=== PATIENT | male | born 1965 | race American Indian/Alaskan Native ===

== ENCOUNTER 2017-08-22 21:01 | Emergency (ER) | payer MEDICAID ==
[2017-08-22 21:01] VITALS: BMI 22.9
--- NOTE | 2017-08-22 23:46 | C.PDOC ---
History Of Present Illness 52yo male, presents to ED stating he has a "bad left leg" and that his leg was weak earlier today, "gave out" and he fell resulting in a head injury around 1630 today. Patient denies any associated loss of consciousness. Patient admits to drinking all day today and states he went to [employer] food for tonight, had an episode of chest pain and called the ambulance. Patient's current story is contrary to what he said to triage nurse. Time Seen by Provider: 08/22/17 23:23 Chief Complaint (Nursing): Substance Abuse History Per: Patient History/Exam Limitations: intoxication Current Symptoms Are (Timing): Still Present Modifying Factor(s): Alcohol Past Medical History Reviewed: Historical Data, Nursing Documentation, Vital Signs Vital Signs: Last Vital Signs Temp 98.2 F 08/22/17 22:43 Pulse 81 08/22/17 22:43 Resp 18 08/22/17 22:43 BP 122/82 08/22/17 22:43 Pulse Ox 99 08/22/17 23:49 - Medical History PMH: Asthma, Depression, Diabetes, Gastritis, Gastrointestinal Ulcer, HTN, Pneumonia, Seizures Surgical History: Endoscopy - [facility] Procedures ALCOHOL DETOXIFICATION (06/06/14) DETOXIFICATION SERVICES FOR SUBSTANCE ABUSE TREATMENT (03/30/16) ESOPHAGOGASTRODUODENOSCOPY [EGD] W/CLOSED BIOPSY (07/31/13) INDIV PSYCHOTHERAPY FOR SUBSTANCE ABUSE TREATMENT, SUPPORT (03/30/16) INFLUENZA VACCINATION (07/31/13) INJECT/INFUSE ELECTROLYT (07/07/14) INJECT/INFUSE NEC (07/07/14) INTRODUCTION OF SERUM/TOX/VACCINE INTO MUSCLE, PERC APPROACH (02/12/17) TETANUS TOXOID ADMINIST (08/06/14) VACCINATION NEC (07/31/13) Family History: States: Unknown Family Hx - Social History Hx Tobacco Use: No Hx Alcohol Use: Yes Hx Substance Use: No (denies) - Immunization History Hx Tetanus Toxoid Vaccination: No Hx Influenza Vaccination: Yes Hx Pneumococcal Vaccination: No Review Of Systems Constitutional: Negative for: Fever, Chills, Sweats Eyes: Negative for: Vision Change Cardiovascular: Positive for: Chest Pain. Negative for: Palpitations, Orthopnea Respiratory: Negative for: Cough, Shortness of Breath, SOB with Excertion Gastrointestinal: Negative for: Nausea, Vomiting, Abdominal Pain Musculoskeletal: Positive for: Leg Pain Neurological: Positive for: Other (head injury due to fall). Negative for: Weakness (left knee) Physical Exam - Physical Exam Appears: No Acute Distress Skin: Warm, Dry Head: Atraumatic, Normacephalic Eye(s): bilateral: Normal Inspection Oral Mucosa: Other (alcohol on breath) Neck: Supple Chest: Symmetrical Cardiovascular: Rhythm Regular Respiratory: Normal Breath Sounds Back: Normal Inspection Extremity: Normal ROM Neurological/Psych: Oriented x3, No Normal Speech (slurred speech due to intoxication) Gait: Unsteady ED Course And Treatment - Laboratory Results Result Diagrams: 08/23/17 00:11 ECG: Interpreted By Me ECG Rhythm: Sinus Rhythm (with old septal infarct), Sinus Tachycardia O2 Sat by Pulse Oximetry: 99 (RA) Pulse Ox Interpretation: Normal Medical Decision Making Medical Decision Making: Impression: Alcohol intoxication, musculoskeletal pain Plan: -- CT Head w/o contrast -- Labs Disposition - Disposition Referrals: Non [facility] Provider, [Primary Care Provider] - Disposition Time: 00:43 Condition: STABLE - Clinical Impression Clinical Impression: Closed head injury, Alcohol intoxication, Chest pain - Scribe Statement The provider has reviewed the documentation as recorded by the Scribe (Sindy Rollins) Provider Attestation: All medical record entries made by the Scribe were at my direction and personally dictated by me. I have reviewed the chart and agree that the record accurately reflects my personal performance of the history, physical exam, medical decision making, and the department course for this patient. I have also personally directed, reviewed, and agree with the discharge instructions and disposition. Physician Patient Turnover Patient Signed Over To: Marco Antonio Cárdenas Handoff Comments: pending labs and CT Head
[2017-08-23 00:22] LABS: BASO # 0.1 K/uL (0.0-0.2); BASO % 1.2 % (0.0-2.0); EOS # 0.1 K/uL (0.0-0.7); EOS % 2.8 % (0.0-4.0); HEMOGLOBIN 13.2 g/dL (12.0-18.0); LYMPH % 47.8 % (20.0-40.0); MEAN CELL VOLUME 95.5 fL (80.0-94.0); MEAN CORPUSCULAR HEMOGLOBIN 33.2 pg (27.0-31.0); MEAN CORPUSCULAR HGB CONC 34.8 g/dL (33.0-37.0); MEAN PLATELET VOLUME 6.9 fL (7.2-11.7); MONO # 0.2 K/uL (0.0-0.8); MONO % 4.6 % (0.0-10.0); NEUT # 1.8 K/uL (1.8-7.0); NEUT % 43.6 % (50.0-75.0); NRBC % 0.1 % (0.0-2.0); RBC 3.97 Mil/uL (4.40-5.90); RED CELL DISTRIBUTION WIDTH 13.5 % (11.5-14.5); WHITE BLOOD COUNT 4.1 K/uL (4.8-10.8)
[2017-08-23 00:50] LABS: ALB/GLOB RATIO 1.1 (1.0-2.1); ALBUMIN 4.5 g/dL (3.5-5.0); ALT/SGPT 46 U/L (21-72); AST/SGOT 84 U/L (17-59); BLOOD UREA NITROGEN 5 mg/dL (9-20); CALCIUM 8.6 mg/dl (8.6-10.4); GFR AFRICAN-AMERICAN > 60; GFR NON-AFRICAN AMERICAN > 60
--- NOTE | 2017-08-23 01:33 | CT ---
EXAM: CT Head Without Intravenous Contrast CLINICAL HISTORY: 52 years old, male; Pain; Headache; Patient HX: 05-10-16; Additional info: Head injury TECHNIQUE: Axial computed tomography images of the head/brain without intravenous contrast. All CT scans at this facility use one or more dose reduction techniques, viz.: automated exposure control; ma/kV adjustment per patient size (including targeted exams where dose is matched to indication; i.e. head); or iterative reconstruction technique. COMPARISON: CT - HEAD W/O CONTRAST 2015-08-11 01:26 FINDINGS: Brain: Mild atrophy. No intracranial hemorrhage. No mass. Few scattered foci of decreased attenuation within periventricular/subcortical white matter. No edema. Ventricles: No hydrocephalus. Bones/joints: No acute fracture. Chronic deformities of facial bones. Soft tissues: Multifocal scalp swelling. Tiny radiopaque densities along frontal scalp, stable. Sinuses: Air-fluid level within LEFT maxillary sinus. Mastoid air cells: No mastoid effusion. Orbits: Unremarkable as visualized. IMPRESSION: 1. No intracranial hemorrhage. 2. Nonspecific white matter changes. 3. Incidental/non-acute findings are described above.
[2017-08-23 05:56] VITALS: BP 124/69; PULSE 69; RESP 20; TEMP 97.2; O2SAT 98
--- NOTE | 2017-08-23 21:01 | CARD ---
APPROVED REPORT EKG Measurement Heart [id number] <Conclusion> Sinus tachycardia Left axis deviation Septal infarct, age undetermined Abnormal ECG
== END 2017-08-23 05:56 | disposition home or self-care (01) ==
LOC: SUPCPDRO 21:01 → C.ER 21:01
DX: S09.90XA Unspecified injury of head, initial encounter (principal); X58.XXXA Exposure to other specified factors, initial encounter; F10.129 Alcohol abuse with intoxication, unspecified; E11.9 Type 2 diabetes mellitus without complications; I10 Essential (primary) hypertension

== ENCOUNTER 2017-10-01 01:40 | Emergency (ER) | payer MEDICAID ==
[2017-10-01 01:40] VITALS: BMI 22.9
--- NOTE | 2017-10-01 02:32 | C.PDOC ---
History Of Present Illness 52yo male, presents to ED with complaints of left hip pain which is chronic. He reports a fall a couple days ago but denies any falls or injuries today. Patient also admits to drinking alcohol today. He offers no other medical complaints. Time Seen by Provider: 10/01/17 01:48 Chief Complaint (Nursing): Substance Abuse History Per: Patient Onset/Duration Of Symptoms: Persistent Current Symptoms Are (Timing): Still Present - Hip Description Of Injury: Fell Past Medical History Reviewed: Historical Data, Nursing Documentation, Vital Signs Vital Signs: Last Vital Signs Temp 98 F 10/01/17 01:50 Pulse 82 10/01/17 01:50 Resp 18 10/01/17 01:50 BP 133/64 10/01/17 01:50 Pulse Ox 97 10/01/17 04:47 - Medical History PMH: Asthma, Depression, Diabetes, Gastritis, Gastrointestinal Ulcer, HTN, Pneumonia, Seizures Surgical History: Endoscopy Denies: Appendectomy - [facility] Procedures ALCOHOL DETOXIFICATION (06/06/14) DETOXIFICATION SERVICES FOR SUBSTANCE ABUSE TREATMENT (03/30/16) ESOPHAGOGASTRODUODENOSCOPY [EGD] W/CLOSED BIOPSY (07/31/13) INDIV PSYCHOTHERAPY FOR SUBSTANCE ABUSE TREATMENT, SUPPORT (03/30/16) INFLUENZA VACCINATION (07/31/13) INJECT/INFUSE ELECTROLYT (07/07/14) INJECT/INFUSE NEC (07/07/14) INTRODUCTION OF SERUM/TOX/VACCINE INTO MUSCLE, PERC APPROACH (02/12/17) TETANUS TOXOID ADMINIST (08/06/14) VACCINATION NEC (07/31/13) Family History: States: Unknown Family Hx - Social History Hx Tobacco Use: No Hx Alcohol Use: Yes Hx Substance Use: No (denies) - Immunization History Hx Tetanus Toxoid Vaccination: No Hx Influenza Vaccination: Yes Hx Pneumococcal Vaccination: No Review Of Systems Except As Marked, All Systems Reviewed And Found Negative. Musculoskeletal: Positive for: Other (left hip pain) Neurological: Negative for: Weakness, Numbness Physical Exam - Physical Exam Appears: No Acute Distress, Unkempt Skin: Normal Color Head: Atraumatic, Normacephalic Eye(s): bilateral: Normal Inspection Oral Mucosa: Moist, Other (alcohol on breath) Neck: Normal ROM Chest: Symmetrical Cardiovascular: Rhythm Regular Respiratory: Normal Breath Sounds Extremity: Normal ROM, No Deformity, No Swelling, Other (no signs of trauma noted) Neurological/Psych: Oriented x3 Gait: With Assistance (uses cane) ED Course And Treatment O2 Sat by Pulse Oximetry: 97 (RA) Pulse Ox Interpretation: Normal Medical Decision Making Medical Decision Making: Impression: Chronic left hip pain Plan: -- Prior records reviewed, patient was evaluated at [facility] 2 nights in a row, had xrays which showed no fractures or dislocations to hip or femur -- Patient to be observed in ER pending sobriety Disposition - Disposition Referrals: Alcoholics Anonymous [Outside] [facility] [Outside] [facility] [Outside] Disposition: HOME/ ROUTINE Disposition Time: 04:46 Condition: STABLE Instructions: Hip Pain (DC), Effects of Alcohol on Your Health Forms: [facility] (Kyrgyz) - POA Present On Arrival: None - Clinical Impression Clinical Impression: Alcohol abuse with intoxication, Hip pain, left - PA / CONCRETE MASON / Resident Statement MD/DO has reviewed & agrees with the documentation as recorded. - Scribe Statement The provider has reviewed the documentation as recorded by the Scribe (Sindy Rollins) Provider Attestation: All medical record entries made by the Scribe were at my direction and personally dictated by me. I have reviewed the chart and agree that the record accurately reflects my personal performance of the history, physical exam, medical decision making, and the department course for this patient. I have also personally directed, reviewed, and agree with the discharge instructions and disposition.
[2017-10-01 05:02] VITALS: BP 123/79; PULSE 72; RESP 20; TEMP 97.8
[2017-10-01 05:24] VITALS: O2SAT 97
== END 2017-10-01 05:08 | disposition home or self-care (01) ==
LOC: C.ER 01:40
DX: M25.552 Pain in left hip (principal); F10.129 Alcohol abuse with intoxication, unspecified; I10 Essential (primary) hypertension; E11.9 Type 2 diabetes mellitus without complications

== ENCOUNTER 2017-10-03 01:52 | Emergency (ER) | payer MEDICAID ==
[2017-10-03 01:53] VITALS: BMI 22.9
[2017-10-03 03:42] LABS: BASO % 1.2 % (0.0-2.0); EOS % 0.6 % (0.0-4.0); HEMOGLOBIN 11.1 g/dL (12.0-18.0); LYMPH # 1.2 K/uL (1.0-4.3); LYMPH % 38.3 % (20.0-40.0); MEAN CELL VOLUME 97.9 fL (80.0-94.0); MEAN CORPUSCULAR HGB CONC 34.7 g/dL (33.0-37.0); MEAN PLATELET VOLUME 7.4 fL (7.2-11.7); MONO # 0.3 K/uL (0.0-0.8); MONO % 8.3 % (0.0-10.0); NEUT # 1.6 K/uL (1.8-7.0); NEUT % 51.6 % (50.0-75.0); NRBC % 0.2 % (0.0-2.0); RBC 3.28 Mil/uL (4.40-5.90); RED CELL DISTRIBUTION WIDTH 16.5 % (11.5-14.5); WHITE BLOOD COUNT 3.1 K/uL (4.8-10.8)
--- NOTE | 2017-10-03 03:47 | C.PDOC ---
History Of Present Illness 52 y/o male presents to the Emergency Department via EMS for evaluation of chest pain and left hip pain. Patient is intoxicated with + alcohol on breath. States he fell, striking his left chest and hip. Denies any weakness, numbness, tingling, shortness of breath, or dizziness. Patient did not hit head during fall. Time Seen by Provider: 10/03/17 02:44 Chief Complaint (Nursing): Chest Pain History Per: Patient History/Exam Limitations: intoxication Onset/Duration Of Symptoms: Hrs Current Symptoms Are (Timing): Still Present Additional History Per: EMS Past Medical History Reviewed: Historical Data, Nursing Documentation, Vital Signs Vital Signs: Last Vital Signs Temp 97.7 F 10/03/17 06:01 Pulse 75 10/03/17 06:01 Resp 16 10/03/17 06:01 BP 108/68 10/03/17 06:01 Pulse Ox 99 10/03/17 07:16 - Medical History PMH: Asthma, Depression, Diabetes, Gastritis, Gastrointestinal Ulcer, HTN, Pneumonia, Seizures Surgical History: Endoscopy Denies: Appendectomy - [facility] Procedures ALCOHOL DETOXIFICATION (06/06/14) DETOXIFICATION SERVICES FOR SUBSTANCE ABUSE TREATMENT (03/30/16) ESOPHAGOGASTRODUODENOSCOPY [EGD] W/CLOSED BIOPSY (07/31/13) INDIV PSYCHOTHERAPY FOR SUBSTANCE ABUSE TREATMENT, SUPPORT (03/30/16) INFLUENZA VACCINATION (07/31/13) INJECT/INFUSE ELECTROLYT (07/07/14) INJECT/INFUSE NEC (07/07/14) INTRODUCTION OF SERUM/TOX/VACCINE INTO MUSCLE, PERC APPROACH (02/12/17) TETANUS TOXOID ADMINIST (08/06/14) VACCINATION NEC (07/31/13) Family History: States: Unknown Family Hx - Social History Hx Tobacco Use: No Hx Alcohol Use: Yes Hx Substance Use: No (denies) - Immunization History Hx Tetanus Toxoid Vaccination: No Hx Influenza Vaccination: Yes Hx Pneumococcal Vaccination: No Review Of Systems Except As Marked, All Systems Reviewed And Found Negative. Constitutional: Negative for: Fever, Chills Eyes: Negative for: Pain ENT: Negative for: Ear Pain, Ear Discharge Cardiovascular: Positive for: Chest Pain. Negative for: Palpitations, Orthopnea , Paroxysmal Noc. Dyspnea Respiratory: Negative for: Cough, Shortness of Breath, Hemoptysis, SOB with Excertion, Pleuritic Pain Gastrointestinal: Negative for: Nausea, Vomiting, Constipation Genitourinary: Negative for: Dysuria, Hematuria Musculoskeletal: Positive for: Other (hip pain). Negative for: Neck Pain Skin: Negative for: Rash, Lesions Neurological: Negative for: Weakness, Numbness (and tingling), Headache, Dizziness Psych: Negative for: Anxiety, Depression Physical Exam - Physical Exam Appears: Non-toxic, No Acute Distress Skin: Normal Color, Warm, Dry Head: Atraumatic, Normacephalic Eye(s): bilateral: Normal Inspection, PERRL, EOMI Nose: Normal Neck: Normal ROM, Supple Chest: Symmetrical, No Tenderness Cardiovascular: Rhythm Regular, No Murmur Respiratory: Normal Breath Sounds, No Accessory Muscle Use Gastrointestinal/Abdominal: Soft, No Tenderness, No Distention Extremity: Normal ROM, Tenderness (with extension and flexion of the left hip), No Deformity Neurological/Psych: Oriented x3, Normal Speech, Normal Motor, Normal Sensation ED Course And Treatment - Laboratory Results Result Diagrams: 10/03/17 03:36 10/03/17 06:19 ECG: Interpreted By Me, Viewed By Me Interpretation Of ECG: J point elevation in lead 1 and avL. Vent rate: 83 bpm. ND interval: 154 ms. QRS duration: 92 ms. QT/QTc: 388/455 ms. P-R-T axes: 65 -27 20 O2 Sat by Pulse Oximetry: 99 (RA) Pulse Ox Interpretation: Normal Medical Decision Making Medical Decision Making: Time: 02:50 Initial Plan: * EKG * Urine drug screen * Alcohol serum * Acetaminophen * Salicylate * Troponin I * Pro-BNP * CMP * CBC * PTT * Prothrombin time * X-ray left knee * X-ray left femur * X-ray pelvis * Chest x-ray Labs reviewed: Sodium is 122, Chloride 88. Alcohol is 228. IVF hydration ordered. 6:[address] Pelvis w/o contrast Disposition Counseled Patient/Family Regarding: Diagnosis - Disposition Disposition: HOME/ ROUTINE Disposition Time: 07:17 Condition: GOOD Forms: [facility] (Estonian) - Clinical Impression Clinical Impression: Chest pain, Hip pain, left - Scribe Statement The provider has reviewed the documentation as recorded by the Rima Roe Provider Attestation: All medical record entries made by the Rima were at my direction and personally dictated by me. I have reviewed the chart and agree that the record accurately reflects my personal performance of the history, physical exam, medical decision making, and the department course for this patient. I have also personally directed, reviewed, and agree with the discharge instructions and disposition.
[2017-10-03 03:48] LABS: INR 0.9; PROTHROMBIN TIME 10.4 SECONDS (9.7-12.2)
[2017-10-03 03:54] LABS: ACETAMINOPHEN < 10.0 ug/mL (10.0-30.0); SALICYLATE < 1.0 mg/dL 1
[2017-10-03 03:56] LABS: ALB/GLOB RATIO 1.2 (1.0-2.1); ALT/SGPT 191 U/L (21-72); AST/SGOT 225 U/L (17-59); BLOOD UREA NITROGEN 8 mg/dL (9-20); CALCIUM 8.6 mg/dl (8.6-10.4); GFR AFRICAN-AMERICAN > 60; GFR NON-AFRICAN AMERICAN > 60
[2017-10-03 04:05] LABS: B-TYPE NATRIURETIC PEPTIDE 61.4 pg/mL (0-900)
[2017-10-03] MEDS ORDERED: Sodium Chloride 0.9% 1,000 ML IV ONE (05:55)
[2017-10-03 06:36] LABS: ALB/GLOB RATIO 1.3 (1.0-2.1); ALT/SGPT 193 U/L (21-72); AST/SGOT 235 U/L (17-59); BLOOD UREA NITROGEN 8 mg/dL (9-20); CALCIUM 8.6 mg/dl (8.6-10.4); GFR AFRICAN-AMERICAN > 60; GFR NON-AFRICAN AMERICAN > 60
[2017-10-03 07:05] LABS: BARBITURATES, UR NEGATIVE (NEGATIVE); BENZODIAZEPINES, UR NEGATIVE (NEGATIVE); OPIATES, UR NEGATIVE (NEGATIVE); PHENCYCLIDINE, UR NEGATIVE (NEGATIVE)
[2017-10-03 08:09] VITALS: O2SAT 98
--- NOTE | 2017-10-03 08:28 | RAD ---
PROCEDURE: CHEST RADIOGRAPH, 1 VIEW HISTORY: Chest pain COMPARISON: 03/28/2016. FINDINGS: LUNGS: The lungs are well inflated and clear. PLEURA: No pneumothorax or pleural fluid seen. CARDIOVASCULAR: Normal. OSSEOUS STRUCTURES: No significant abnormalities. VISUALIZED UPPER ABDOMEN: Normal. OTHER FINDINGS: None. IMPRESSION: No active pulmonary disease.
--- NOTE | 2017-10-03 08:42 | RAD ---
PROCEDURE: Radiographs of the pelvis. HISTORY: trauma COMPARISON: None. FINDINGS: BONES: The pelvic ring is intact. There is no acute displaced fracture or bone destruction. Status post open reduction and internal fixation of proximal right femoral fracture. JOINTS: There is severe degenerative osteoarthrosis in the left hip joint with loss of joint space, subarticular cystic changes and lateral displacement of the femoral head. There is moderate degenerative osteoarthrosis in the right hip joint. OTHER FINDINGS: None. IMPRESSION: No acute fracture or dislocation.
--- NOTE | 2017-10-03 08:47 | RAD ---
PROCEDURE: Left Knee Radiographs. HISTORY: Pain. COMPARISON: None. FINDINGS: BONES: There is no acute displaced fracture or bone destruction. Bone alignment is normal. There is periarticular bone demineralization. Status post open reduction and internal fixation of tibial fracture. JOINTS: There is mild tricompartmental degenerative osteoarthrosis with reduced joint spaces and marginal spurring, worse in the medial compartment. JOINT EFFUSION: None. OTHER FINDINGS: None. IMPRESSION: No acute displaced fracture or dislocation.
--- NOTE | 2017-10-03 08:49 | RAD ---
PROCEDURE: Left Femur Radiographs. HISTORY: Trauma COMPARISON: None. TECHNIQUE: AP and Lateral Radiographs of the left femur. FINDINGS: FEMUR: Bone alignment and mineralization are normal. There is no acute fracture or bone destruction. SOFT TISSUES: Normal. OTHER FINDINGS: None. IMPRESSION: No acute fracture.
--- NOTE | 2017-10-03 09:34 | CT ---
PROCEDURE: CT scan of the pelvis was performed without administration of intravenous contrast INDICATION: COMPARISON: Plain radiographs performed earlier the same day. TECHNIQUE:: Multiple axial images were obtained with slice thickness of 2.5 mm. Coronal and sagittal reformatted images were obtained. Iterative reconstruction was used. This CT exam was performed using one or more of the following dose reduction techniques: Automated exposure control, adjustment of the mA and/or kV according to patient size, and/or use of iterative reconstruction technique. Total exam DLP = 430.27 mGy-cm. FINDINGS: There is no acute displaced fracture or bone destruction. Bone alignment is normal. There is mild diffuse bone demineralization. Status post open reduction and internal fixation of right proximal femoral fracture. There is no evidence for hardware complications. There is severe degenerative osteoarthrosis in the left hip joint with near complete loss of joint space, subarticular cystic changes and sclerosis are lateral displacement of the femoral head. There is moderate degenerative osteoarthrosis in the right hip joint. Both sacroiliac joints are normal. The periarticular soft tissues are normal. IMPRESSION: 1. No acute displaced fracture or dislocation. 2. Status post open reduction and internal fixation of right proximal femoral fracture, no evidence for hardware complications. 3. Severe degenerative osteoarthrosis in the left hip joint with lateral displacement of the femoral head. 4. Moderate degenerative osteoarthrosis in the right hip joint.
[2017-10-03] MEDS ORDERED: Potassium Chloride 20 mEq ER Tab PO STA (10:11)
[2017-10-03] MEDS ORDERED: Potassium Chloride 20 mEq ER Tab PO ONE (10:15)
[2017-10-03 10:26] VITALS: BP 127/85; PULSE 78; RESP 16; TEMP 98.8
--- NOTE | 2017-10-04 23:31 | CARD ---
APPROVED REPORT EKG Measurement Heart [id number] <Conclusion> Normal sinus rhythm Septal infarct, age undetermined Abnormal ECG
== END 2017-10-03 11:00 | disposition home or self-care (01) ==
LOC: C.ER 01:52
DX: R07.9 Chest pain, unspecified (principal); M25.552 Pain in left hip; E11.9 Type 2 diabetes mellitus without complications; I10 Essential (primary) hypertension
CPT/HCPCS: 71045; 72170; 72192; 73552; 73562; 80053; 80320; 80324; 80329; 80345; 80346; 80349; 80353; 80358; 80361; 83880; 83992; 84484; 85025; 85610; 85730; 93005; 96360; 99285; J7040

== ENCOUNTER 2017-10-03 18:22 | Emergency (ER) | payer MEDICAID ==
[2017-10-03 18:22] VITALS: BMI 22.9
[2017-10-03 18:38] VITALS: O2SAT 98
--- NOTE | 2017-10-03 18:58 | C.PDOC ---
History Of Present Illness Patient is a 52 y/o male, with a Hx of HTN and alcoholism, who presents to the ED with complaints of left chest wall pain, left hip pain, and left-sided head pain s/p falling down 9 steps. Patient was discharged from ED earlier today. Per brother, patient was found unconscious by neighbors; unknown if caused by alcohol consumption or head injury. Patient states last drink was last night, but family reports he was drinking today. Patient is awake and alert in the ED. No other physical complaints at this time. - HPI Time Seen by Provider: 10/03/17 18:39 Chief Complaint (Nursing): Trauma History Per: Patient History/Exam Limitations: no limitations Onset/Duration Of Symptoms: Hrs Injury Occurred (Timing): Hours Ago: Location Of Injury: Left: Chest, Head, Hip Recent travel outside of the [place]: No Past Medical History Reviewed: Historical Data, Nursing Documentation, Vital Signs Vital Signs: Last Vital Signs Temp 97.5 F L 10/03/17 18:31 Pulse 83 10/03/17 18:31 Resp 17 10/03/17 18:31 BP 110/74 10/03/17 18:31 Pulse Ox 98 10/03/17 20:52 - Medical History PMH: Asthma, Depression, Diabetes, Gastritis, Gastrointestinal Ulcer, HTN, Pneumonia, Seizures Surgical History: Endoscopy Denies: Appendectomy - [facility] Procedures ALCOHOL DETOXIFICATION (06/06/14) DETOXIFICATION SERVICES FOR SUBSTANCE ABUSE TREATMENT (03/30/16) ESOPHAGOGASTRODUODENOSCOPY [EGD] W/CLOSED BIOPSY (07/31/13) INDIV PSYCHOTHERAPY FOR SUBSTANCE ABUSE TREATMENT, SUPPORT (03/30/16) INFLUENZA VACCINATION (07/31/13) INJECT/INFUSE ELECTROLYT (07/07/14) INJECT/INFUSE NEC (07/07/14) INTRODUCTION OF SERUM/TOX/VACCINE INTO MUSCLE, PERC APPROACH (02/12/17) TETANUS TOXOID ADMINIST (08/06/14) VACCINATION NEC (07/31/13) Family History: States: No Known Family Hx - Social History Hx Tobacco Use: No Hx Alcohol Use: Yes Hx Substance Use: No (denies) - Immunization History Hx Tetanus Toxoid Vaccination: No Hx Influenza Vaccination: Yes Hx Pneumococcal Vaccination: No Review Of Systems Cardiovascular: Positive for: Chest Pain (left chest wall pain) Musculoskeletal: Positive for: Other (left hip pain) Neurological: Positive for: Headache (left-sided head pain) Physical Exam - Physical Exam Appears: Non-toxic, Other (alcohol on breath) Skin: Normal Color, Warm, Dry Head: Atraumatic, Normacephalic, No Tenderness, No Laceration Oral Mucosa: Moist Neck: No Supple Cardiovascular: Rhythm Regular, No Murmur Respiratory: Normal Breath Sounds, No Rales, No Rhonchi, No Wheezing, Other (no trouble breathing) Gastrointestinal/Abdominal: Soft, No Tenderness Extremity: Normal ROM (FROM in left shoulder and left hip) ED Course And Treatment - Laboratory Results Result Diagrams: 10/03/17 19:07 10/03/17 19:07 Lab Interpretation: No Acute Changes (Elevated LFTs, ETOH 283) O2 Sat by Pulse Oximetry: 98 Pulse Ox Interpretation: Normal - Other Rad Left ribs with CXR X-Ray: Interpreted by Me Interpretation: No evidence of rib fracture or pneumothorax. - CT Scan/US CT head Other Rad Studies (CT/US): Read By Radiologist, Radiology Report Reviewed CT/US Interpretation: Accession No. : [id number]. Patient Name / ID : DACIA RICHMOND / [id number]. Exam Date : 10/03/2017 20:43:11 ( Approved ). Study Comment : Sex / Age : M / 52Y. Creator : Eddie Ann MD. Dictator : Paving Inspector : Shell Sieve Operator : Eddie Ann MD. Approver2 : Report Date : 10/03/2017 21:17:00. My Comment : . [facility] Division of Radiology. [address] [place], [place] [id number]. Tel. no. . . . Patient Name: BASILIO PEDERSON . Pt. Address: [address] [place] [address]. Rec #: [id number]. [place] [address]: Anyi HILL,Chari Maria. Pt Order Location: [facility] : 1965 Male Age: 52 Order #: [id number]. Reason for exam: fall down steps. . . . . . CT Scan. . . HEAD W/O CONTRAST Exam Date: . . This imaging exam was performed at [facility]. EXAM: CT Head Without Intravenous Contrast. . CLINICAL HISTORY: 52 years old, male; Pain; Headache and other: Fall; Additional info: Fall. down steps. Pt. Keep moving. . TECHNIQUE: Axial computed tomography images of the head/brain without intravenous. contrast. All CT scans at this facility use one or more dose reduction. techniques, viz.: automated exposure control; ma/kV adjustment per patient size. (including targeted exams where dose is matched to indication; i.e. head); or. iterative reconstruction technique. Coronal and sagittal reformatted images were created and reviewed. . COMPARISON: CT - HEAD W/O CONTRAST 2017-08-23 00:56. . FINDINGS: Brain: Mild atrophy. No intracranial hemorrhage. No mass. Few scattered. foci of decreased attenuation within periventricular/subcortical white matter. No edema. Ventricles: No hydrocephalus. Bones/joints: No calvarial fracture. Chronic deformity left zygomatic arch,. nasal bones. Linear metallic density, likely hardware within right axilla. Soft tissues: Multifocal scalp swelling. Tiny radiopaque densities along. frontal scalp, stable. Sinuses: Mild focal mucosal thickening or fluid of LEFT maxillary sinus,. stable. Mastoid air cells: No mastoid effusion. Orbits: Unremarkable as visualized. . IMPRESSION: 1. No intracranial hemorrhage. 2. Nonspecific white matter changes. 3. Incidental/non-acute findings are described above. . Dictated By : Eddie Ann MD. Dictated Date/Time: 10/03/172116. Signed By: Eddie Ann MD. Date Signed: 10/03/172116. Transcribed By: [facility]. Transcribe Date/Time: 10/03/172116. ACYP02/MT CT c-spine Other Rad Studies (CT/US): Read By Radiologist, Radiology Report Reviewed CT/US Interpretation: Accession No. : [id number]. Patient Name / ID : DACIA RICHMOND / [id number]. Exam Date : 10/03/2017 20:45:54 ( Approved ). Study Comment : Sex / Age : M / 52Y. Creator : Eddie Ann MD. Dictator : Paving Inspector : Shell Sieve Operator : Eddie Ann MD. Approver2 : Report Date : 10/03/2017 21:21:00. My Comment : . [facility] Division of [facility]. [address] [place] [address]. Tel. no. . . . Patient Name: BASILIO PEDERSON . Pt. Address: [address] [place] [address]. Rec #: [id number]. [place] [address]: Chari De Santiago MD. Pt Order Location: [facility] : 1965 Male Age: 52 Order #: [id number]. Reason for exam: fall with head injury. . . . . . CT Scan. . . CERVICAL SPINE W/O CONTRAST Exam Date: 10/03/17. . This imaging exam was performed at [facility]. EXAM: CT Cervical Spine Without Intravenous Contrast. . CLINICAL HISTORY: 52 years old, male; Pain; Neck pain; Patient HX: 09-06-17 images sent;. Additional info: Fall with head injury. . TECHNIQUE: Axial computed tomography images of the cervical spine without intravenous. contrast. All CT scans at this facility use one or more dose reduction. techniques, viz.: automated exposure control; ma/kV adjustment per patient size. (including targeted exams where dose is matched to indication; i.e. head); or. iterative reconstruction technique. Coronal and sagittal reformatted images were created and reviewed. . COMPARISON: No relevant prior studies available. . FINDINGS : Vertebrae: No acute fracture. Degenerative retrolithesis of lower cervical. spine. Mild facet osteoarthrosis. Discs/spinal canal/neural foramina: Moderate degenerative disc disease. within upper cervical spine. Early degenerative disc disease within mid. cervical spine. Moderate degenerative disc disease within lower cervical. spine. Mild indentation thecal sac/cord upper cervical spine. Mild to. moderate indentation thecal sac /cord lower cervical spine. Neuroforaminal. narrowing with upper and lower cervical spine. Soft tissues: Unremarkable. Vasculature: Minimal atherosclerotic disease. Lung apices: Early emphysematous changes. Minimal atelectasis/scarring. . IMPRESSION: 1. No fracture. 2. Incidental/non- acute findings are described above. . Dictated By: Eddie Ann MD. Dictated Date/Time: 10/03/172120. Signed By: Eddie Ann MD. Date Signed : 10/03/172120. Transcribed By: [facility]. Transcribe Date/Time: 10/03/172120. ACYP02/MT Progress Note: Cervical spine CT, Head CT, Ribs and chest XR, UA, and blood work ordered. Reevaluation Time: 21:27 Reassessment Condition: Improved Disposition Counseled Patient/Family Regarding: Studies Performed, Diagnosis, Need For Followup - Disposition Referrals: [facility] [Outside] Disposition: HOME/ ROUTINE Disposition Time: 21:29 Condition: IMPROVED Additional Instructions: Take Tylenol or Ibuprophen if needed for pain. Instructions: Bruised Rib (DC), Minor Head Injury, Contusion (DC) Forms: [employer] (Belarusian) - Clinical Impression Clinical Impression: Alcohol intoxication, Closed head injury, Contusion of left chest wall - Scribe Statement The provider has reviewed the documentation as recorded by the Scribe Stacey Falcon All medical record entries made by the Scribe were at my direction and personally dictated by me. I have reviewed the chart and agree that the record accurately reflects my personal performance of the history, physical exam, medical decision making, and the department course for this patient. I have also personally directed, reviewed, and agree with the discharge instructions and disposition.
[2017-10-03 19:09] LABS: BASO % 1.2 % (0.0-2.0); EOS % 0.5 % (0.0-4.0); HEMOGLOBIN 12.6 g/dL (12.0-18.0); LYMPH # 1.1 K/uL (1.0-4.3); LYMPH % 31.9 % (20.0-40.0); MEAN CELL VOLUME 98.9 fL (80.0-94.0); MEAN CORPUSCULAR HEMOGLOBIN 34.2 pg (27.0-31.0); MEAN CORPUSCULAR HGB CONC 34.6 g/dL (33.0-37.0); MEAN PLATELET VOLUME 7.4 fL (7.2-11.7); MONO # 0.4 K/uL (0.0-0.8); MONO % 11.8 % (0.0-10.0); NEUT # 1.9 K/uL (1.8-7.0); NEUT % 54.6 % (50.0-75.0); NRBC % 0.1 % (0.0-2.0); RBC 3.68 Mil/uL (4.40-5.90); RED CELL DISTRIBUTION WIDTH 16.6 % (11.5-14.5); WHITE BLOOD COUNT 3.4 K/uL (4.8-10.8)
[2017-10-03 19:14] LABS: URINE BACTERIA RARE (<OCC); URINE BILIRUBIN NEGATIVE (NEGATIVE); URINE BLOOD NEGATIVE (NEGATIVE); URINE CLARITY Clear (Clear); URINE COLOR Yellow (YELLOW); URINE GLUCOSE (UA) NORMAL (Normal); URINE LEUKOCYTE ESTERASE NEG Leu/uL (Negative); URINE PROTEIN NEGATIVE (NEGATIVE); URINE UROBILINOGEN NORMAL mg/dL (0.2-1.0)
[2017-10-03 19:36] LABS: ALB/GLOB RATIO 1.2 (1.0-2.1); ALBUMIN 4.4 g/dL (3.5-5.0); ALT/SGPT 249 U/L (21-72); AST/SGOT 345 U/L (17-59); BLOOD UREA NITROGEN 9 mg/dL (9-20); CALCIUM 8.8 mg/dl (8.6-10.4); GFR AFRICAN-AMERICAN > 60; GFR NON-AFRICAN AMERICAN > 60
--- NOTE | 2017-10-03 21:17 | CT ---
EXAM: CT Head Without Intravenous Contrast CLINICAL HISTORY: 52 years old, male; Pain; Headache and other: Fall; Additional info: Fall down steps. Pt. Keep moving TECHNIQUE: Axial computed tomography images of the head/brain without intravenous contrast. All CT scans at this facility use one or more dose reduction techniques, viz.: automated exposure control; ma/kV adjustment per patient size (including targeted exams where dose is matched to indication; i.e. head); or iterative reconstruction technique. Coronal and sagittal reformatted images were created and reviewed. COMPARISON: CT - HEAD W/O CONTRAST 2017-08-23 00:56 FINDINGS: Brain: Mild atrophy. No intracranial hemorrhage. No mass. Few scattered foci of decreased attenuation within periventricular/subcortical white matter. No edema. Ventricles: No hydrocephalus. Bones/joints: No calvarial fracture. Chronic deformity left zygomatic arch, nasal bones. Linear metallic density, likely hardware within right axilla. Soft tissues: Multifocal scalp swelling. Tiny radiopaque densities along frontal scalp, stable. Sinuses: Mild focal mucosal thickening or fluid of LEFT maxillary sinus, stable. Mastoid air cells: No mastoid effusion. Orbits: Unremarkable as visualized. IMPRESSION: 1. No intracranial hemorrhage. 2. Nonspecific white matter changes. 3. Incidental/non-acute findings are described above.
--- NOTE | 2017-10-03 21:22 | CT ---
EXAM: CT Cervical Spine Without Intravenous Contrast CLINICAL HISTORY: 52 years old, male; Pain; Neck pain; Patient HX: 2 images sent; Additional info: Fall with head injury TECHNIQUE: Axial computed tomography images of the cervical spine without intravenous contrast. All CT scans at this facility use one or more dose reduction techniques, viz.: automated exposure control; ma/kV adjustment per patient size (including targeted exams where dose is matched to indication; i.e. head); or iterative reconstruction technique. Coronal and sagittal reformatted images were created and reviewed. COMPARISON: No relevant prior studies available. FINDINGS: Vertebrae: No acute fracture. Degenerative retrolithesis of lower cervical spine. Mild facet osteoarthrosis. Discs/spinal canal/neural foramina: Moderate degenerative disc disease within upper cervical spine. Early degenerative disc disease within mid cervical spine. Moderate degenerative disc disease within lower cervical spine. Mild indentation thecal sac/cord upper cervical spine. Mild to moderate indentation thecal sac/cord lower cervical spine. Neuroforaminal narrowing with upper and lower cervical spine. Soft tissues: Unremarkable. Vasculature: Minimal atherosclerotic disease. Lung apices: Early emphysematous changes. Minimal atelectasis/scarring. IMPRESSION: 1. No fracture. 2. Incidental/non-acute findings are described above.
[2017-10-03 21:39] VITALS: BP 112/70; PULSE 82; RESP 16; TEMP 98.2
--- NOTE | 2017-10-04 09:02 | RAD ---
PROCEDURE: Radiographs of the Chest and Left Ribs. HISTORY: fall, chest injury COMPARISON: 10/03/2017 at 4:50 a.m.. TECHNIQUE: Frontal radiograph of the chest and multiple oblique radiographs of the left ribs were obtained. FINDINGS: LEFT RIBS: No fracture or focal lesion visualized. LUNGS: Clear. PLEURA: No pneumothorax or pleural fluid. CARDIOVASCULAR: Normal sized heart. No pulmonary vascular congestion. OTHER FINDINGS: None. IMPRESSION: Unremarkable radiographs of the chest and left ribs. No left rib fracture.
== END 2017-10-03 21:39 | disposition home or self-care (01) ==
LOC: C.ER 18:22
DX: S09.90XA Unspecified injury of head, initial encounter (principal); S20.212A Contusion of left front wall of thorax, initial encounter; W10.9XXA Fall (on) (from) unspecified stairs and steps, initial encounter; F10.129 Alcohol abuse with intoxication, unspecified; Y90.8 Blood alcohol level of 240 mg/100 ml or more; E11.9 Type 2 diabetes mellitus without complications; I10 Essential (primary) hypertension

== ENCOUNTER 2017-10-05 13:10 | Inpatient (IN) | payer MEDICAID ==
[2017-10-05 13:10] VITALS: BMI 22.9
[2017-10-05] MEDS ORDERED: Sodium Chloride 0.9% 500 ML IV ONE ×2 (14:39→15:10)
--- NOTE | 2017-10-05 14:43 | C.PDOC ---
History Of Present Illness 52 yo male, hx of etoh abuse, htn, presents with "vomiting blood". pt reports he vomited x 5 day, with blood. no melena, c/o of epigastric abodminal pain. reports he drinks "liquor". no fevers, no cough, no other complaints. Time Seen by Provider: 10/05/17 14:25 Chief Complaint (Nursing): GI Problem Past Medical History Reviewed: Historical Data, Nursing Documentation, Vital Signs Vital Signs: Last Vital Signs Temp 98.1 F 10/05/17 15:42 Pulse 90 10/05/17 15:42 Resp 18 10/05/17 15:42 BP 150/93 H 10/05/17 15:42 Pulse Ox 100 10/05/17 15:42 - Medical History PMH: Asthma, Depression, Diabetes, Gastritis, Gastrointestinal Ulcer, HTN, Pneumonia, Seizures Surgical History: Endoscopy Denies: Appendectomy - [facility] Procedures ALCOHOL DETOXIFICATION (06/06/14) DETOXIFICATION SERVICES FOR SUBSTANCE ABUSE TREATMENT (03/30/16) ESOPHAGOGASTRODUODENOSCOPY [EGD] W/CLOSED BIOPSY (07/31/13) INDIV PSYCHOTHERAPY FOR SUBSTANCE ABUSE TREATMENT, SUPPORT (03/30/16) INFLUENZA VACCINATION (07/31/13) INJECT/INFUSE ELECTROLYT (07/07/14) INJECT/INFUSE NEC (07/07/14) INTRODUCTION OF SERUM/TOX/VACCINE INTO MUSCLE, PERC APPROACH (02/12/17) TETANUS TOXOID ADMINIST (08/06/14) VACCINATION NEC (07/31/13) Family History: States: Unknown Family Hx - Social History Hx Tobacco Use: No Hx Alcohol Use: Yes Hx Substance Use: No (denies) - Immunization History Hx Tetanus Toxoid Vaccination: No Hx Influenza Vaccination: Yes Hx Pneumococcal Vaccination: No Review Of Systems Except As Marked, All Systems Reviewed And Found Negative. Gastrointestinal: Positive for: Nausea, Vomiting, Abdominal Pain, Hematemesis. Negative for: Hematochezia, Rectal Pain Physical Exam - Physical Exam Appears: Well, No Acute Distress Skin: Normal Color, Warm, Dry Eye(s): bilateral: Normal Inspection, PERRL, EOMI Nose: Normal Throat: Normal Neck: Normal Cardiovascular: Rhythm Regular Respiratory: Normal Breath Sounds Gastrointestinal/Abdominal: Normal Exam, Soft, Tenderness (epigastric), No Guarding, No Rebound Back: Normal Inspection Extremity: Normal ROM ED Course And Treatment - Laboratory Results Result Diagrams: 10/05/17 14:56 10/05/17 14:56 Medical Decision Making Medical Decision Making: reported upper gi bleed- h/h stable, guiac neg, no emesis in er. h/o of etoh will cover for variceal bleed. consider pud, gastris, varices. noted cxr read. antibiotics dosed. pt reports cough. covered for aspiration. case discusse [facility] dr holcomb accepts. discussed with dr sanders. pt stable for tele. Disposition - Disposition Disposition: HOSPITALIZED Disposition Time: 18:04 Condition: STABLE - Clinical Impression Clinical Impression: Gastrointestinal hemorrhage, Pneumonia Decision To Admit - Pt Status Changed To: Hospital Disposition Of: Inpatient - Admit Certification Admit to Inpatient:: After my assessment, the patient will require hospitalization for at least two midnights. This is because of the severity of symptoms shown, intensity of services needed, and/or the medical risk in this patient being treated as an outpatient. - InPatient: Physician Admission Certification:: pna needs iv antibiotics, and possible gi bleed. - . Bed Request Type: Telemetry Admitting Physician: Vanna Mullins Patient Diagnosis: Gastrointestinal hemorrhage, Pneumonia
[2017-10-05] MEDS ORDERED: Pantoprazole 80 MG in Sodium Chloride 0.9% 100 ML IVP SCH (14:45)
[2017-10-05] MEDS ORDERED: Octreotide 1,250 MCG in Dextrose 5% In Water 250 ML SC SCH (14:45)
--- NOTE | 2017-10-05 14:50 | RAD ---
PROCEDURE: CHEST RADIOGRAPH, 1 VIEW HISTORY: chest pain COMPARISON: 10/03/2017. FINDINGS: LUNGS: The lungs are well inflated. The right lung is clear. There is a left retrocardiac opacity. PLEURA: No pneumothorax or right pleural fluid seen. There is blunting of the left costophrenic angle. CARDIOVASCULAR: Normal. OSSEOUS STRUCTURES: No significant abnormalities. VISUALIZED UPPER ABDOMEN: Normal. OTHER FINDINGS: None. IMPRESSION: Left retrocardiac opacity may represent pneumonia or contusion in the setting of trauma. Suspect small left pleural effusion. Follow-up is advised.
[2017-10-05] MEDS ORDERED: Azithromycin 500 MG in Sodium Chloride 0.9% 250 ML IVPB STA (14:55)
[2017-10-05] MEDS ORDERED: metroNIDAZOLE IV 500 mg/100 ml 500 MG/100 ML BAG IVPB STA (14:55)
[2017-10-05 15:03] LABS: BASO # 0.1 K/uL (0.0-0.2); MEAN PLATELET VOLUME 7.1 fL (7.2-11.7); MONO # 0.4 K/uL (0.0-0.8); WHITE BLOOD COUNT 3.1 K/uL (4.8-10.8)
[2017-10-05 15:07] LABS: EOS % 0.7 % (0.0-4.0); LYMPH # 0.8 K/uL (1.0-4.3); MEAN CELL VOLUME 99.2 fL (80.0-94.0); MEAN CORPUSCULAR HEMOGLOBIN 34.7 pg (27.0-31.0); MONO % 11.6 % (0.0-10.0); NEUT # 1.8 K/uL (1.8-7.0); NEUT % 58.7 % (50.0-75.0); NRBC % 0.1 % (0.0-2.0); RBC 3.45 Mil/uL (4.40-5.90); RED CELL DISTRIBUTION WIDTH 16.9 % (11.5-14.5)
[2017-10-05 15:11] LABS: INR 0.9
[2017-10-05] MEDS ORDERED: metroNIDAZOLE IV 500 mg/100 ml 500 MG/100 ML BAG ONE (15:11)
[2017-10-05] MEDS ORDERED: cefTRIAXone IV 1 gm in Dextros 50 ML IVPB ONE (15:11)
[2017-10-05 15:28] LABS: URINE BILIRUBIN NEGATIVE (NEGATIVE); URINE BLOOD NEGATIVE (NEGATIVE); URINE CLARITY Hazy (Clear); URINE COLOR Yellow (YELLOW); URINE GLUCOSE (UA) NORMAL (Normal); URINE LEUKOCYTE ESTERASE NEG Leu/uL (Negative); URINE PROTEIN NEGATIVE (NEGATIVE); URINE UROBILINOGEN NORMAL mg/dL (0.2-1.0)
[2017-10-05 15:33] LABS: ALB/GLOB RATIO 1.3 (1.0-2.1); ALBUMIN 4.3 g/dL (3.5-5.0); ALT/SGPT 195 U/L (21-72); AST/SGOT 243 U/L (17-59); BLOOD UREA NITROGEN 6 mg/dL (9-20); CALCIUM 8.8 mg/dl (8.6-10.4); GFR AFRICAN-AMERICAN > 60; GFR NON-AFRICAN AMERICAN > 60; LIPASE 293 U/L (23-300)
[2017-10-05] MEDS: Pantoprazole 80 MG in Sodium Chloride 0.9% 100 ML IV SCH (17:00)
[2017-10-05 22:08] LABS: BARBITURATES, UR NEGATIVE (NEGATIVE); BENZODIAZEPINES, UR NEGATIVE (NEGATIVE); OPIATES, UR NEGATIVE (NEGATIVE); PHENCYCLIDINE, UR NEGATIVE (NEGATIVE)
[2017-10-06] MEDS: Pantoprazole 80 MG in Sodium Chloride 0.9% 100 ML IV SCH ×3 (01:35→21:58)
[2017-10-06 07:23] LABS: HEMOGLOBIN 11.7 g/dL (12.0-18.0); MEAN CELL VOLUME 99.7 fL (80.0-94.0); MEAN CORPUSCULAR HEMOGLOBIN 34.1 pg (27.0-31.0); MEAN CORPUSCULAR HGB CONC 34.2 g/dL (33.0-37.0); MEAN PLATELET VOLUME 7.4 fL (7.2-11.7); RBC 3.44 Mil/uL (4.40-5.90); RED CELL DISTRIBUTION WIDTH 16.8 % (11.5-14.5); WHITE BLOOD COUNT 2.9 K/uL (4.8-10.8)
[2017-10-06] MEDS: Albuterol-Ipratrop 3 mg / 0.5 (3 ml) UD INH SCH ×4 (08:29→19:36)
[2017-10-06] MEDS: Azithromycin 500 MG in Sodium Chloride 0.9% 250 ML IVPB SCH (10:35)
[2017-10-06] MEDS: Octreotide 1,250 MCG in Dextrose 5% In Water 250 ML IV SCH ×2 (13:35→13:44)
[2017-10-06] MEDS: Oxycodone/Acetaminophen 5/325 mg Tab PO PRN ×2 (13:35→20:07)
--- NOTE | 2017-10-06 13:37 | CP.PCM.HP ---
History of Present Illness - History of Present Illness History of Present Illness: PT CAME TO ED C/O DRINKING ALC AND VOMITING BLOOD AND STOACH HURTS Present on Admission - Present on Admission Any Indicators Present on Admission: No Review of Systems - Review of Systems Systems not reviewed;Unavailable: Acuity of Condition - Constitutional Constitutional: Fatigue - EENT Eyes: As Per HPI Nose/Mouth/Throat: As Per HPI - Cardiovascular Cardiovascular: As Per HPI - Respiratory Respiratory: Cough, Dyspnea on Exertion - Gastrointestinal Gastrointestinal: Abdominal Pain, Bloating, Coffee Ground Emesis, Vomiting - Genitourinary Genitourinary: As Per HPI - Reproductive: Male Reproductive:Male: As Per HPI - Musculoskeletal Musculoskeletal: Joint Swelling, Limited Range of Motion, Radiating Pain into Limb Additional comments: S/P L LEG FX - Integumentary Integumentary: As Per HPI - Neurological Neurological: Frequent Falls - Psychiatric Psychiatric: Depression - Endocrine Endocrine: As Per HPI - Hematologic/Lymphatic Hematologic: As Per HPI Past Patient History - Infectious Disease Hx of Infectious Diseases: None - Tetanus Immunizations Tetanus Immunization: Unknown - Past Medical History & Family History Past Medical History?: Yes - Past Social History Smoking Status: Never Smoked - CARDIAC Hx Cardiac Disorders: Yes Hx Hypertension: Yes - PULMONARY Hx Respiratory Disorders: Yes Hx Asthma: Yes Hx Pneumonia: Yes - NEUROLOGICAL Hx Neurological Disorder: Yes Hx Seizures: Yes - HEENT Hx HEENT Problems: No - RENAL Hx Chronic Kidney Disease: No - ENDOCRINE/METABOLIC Hx Endocrine Disorders: No - HEMATOLOGICAL/ONCOLOGICAL Hx Blood Disorders: No - INTEGUMENTARY Hx Dermatological Problems: No - MUSCULOSKELETAL/RHEUMATOLOGICAL Hx Musculoskeletal Disorders: Yes Hx Falls: Yes - GASTROINTESTINAL Hx Gastrointestinal Disorders: Yes Hx Gastritis: Yes - GENITOURINARY/GYNECOLOGICAL Hx Genitourinary Disorders: No - PSYCHIATRIC Hx Psychophysiologic Disorder: No Hx Substance Use: No - SURGICAL HISTORY Hx Surgeries: No Hx Appendectomy: No - ANESTHESIA Hx Anesthesia: Yes Hx Anesthesia Reactions: No Hx Malignant Hyperthermia: No Meds Allergies/Adverse Reactions: Allergies Allergy/AdvReac Type Severity Reaction Status Date / Time No Known Allergies Allergy Verified 10/05/17 13:17 Physical Exam - Constitutional Appears: Non-toxic, Chronically Ill - Head Exam Head Exam: ATRAUMATIC - Eye Exam Eye Exam: Periorbital swelling - ENT Exam ENT Exam: Mucous Membranes Dry - Neck Exam Neck exam: Positive for: Full Rom - Respiratory Exam Respiratory Exam: Decreased Breath Sounds, Rhonchi - Cardiovascular Exam Cardiovascular Exam: REGULAR RHYTHM - GI/Abdominal Exam GI & Abdominal Exam: Soft, Tenderness - Rectal Exam Rectal Exam: NORMAL INSPECTION - Extremities Exam Extremities exam: Positive for: normal inspection, tenderness Additional comments: L HIP PAIN - Back Exam Back exam: CVA tenderness (L) - Neurological Exam Neurological exam: Oriented x3 - Psychiatric Exam Psychiatric exam: Normal Mood - Skin Skin Exam: Normal Color Results - Vital Signs Recent Vital Signs: Last Vital Signs Temp 98.5 F 10/06/17 07:00 Pulse 84 10/06/17 08:33 Resp 20 10/06/17 07:00 BP 137/87 10/06/17 07:00 Pulse Ox 100 10/06/17 07:00 - Labs Result Diagrams: 10/06/17 07:13 10/05/17 14:56 Labs: Laboratory Results - last 24 hr 10/05/17 10/05/17 10/05/17 14:56 14:56 14:56 WBC 3.1 L RBC 3.45 L Hgb 12.0 Hct 34.2 L MCV 99.2 H MCH 34.7 H MCHC 35.0 RDW 16.9 H Plt Count 256 MPV 7.1 L Neut % (Auto) 58.7 Lymph % (Auto) 27.0 [place] % (Auto) 11.6 H Eos % (Auto) 0.7 Baso % (Auto) 2.0 Neut # (Auto) 1.8 Lymph # (Auto) 0.8 L [place] # (Auto) 0.4 Eos # (Auto) 0.0 Baso # (Auto) 0.1 PT 10.0 INR 0.9 APTT 32 Sodium 130 L Potassium 4.0 Chloride 93 L Carbon Dioxide 22 Anion Gap 19 BUN 6 L Creatinine 0.5 L Est GFR ( Amer) > 60 Est GFR (Non-Af Amer) > 60 POC Glucose (mg/dL) Random Glucose 74 L Calcium 8.8 Total Bilirubin 0.5 AST 243 H D ALT 195 H D Alkaline Phosphatase 67 Troponin I < 0.0120 Total Protein 7.6 Albumin 4.3 Globulin 3.2 Albumin/Globulin Ratio 1.3 Lipase 293 Urine Color Urine Clarity Urine pH Ur Specific [place] Urine Protein Urine Glucose (UA) Urine Ketones Urine Blood Urine Nitrate Urine Bilirubin Urine Urobilinogen Ur Leukocyte Esterase Stool Occult Blood Urine Opiates Screen Urine Methadone Screen Ur Barbiturates Screen Ur Phencyclidine Scrn Ur Amphetamines Screen U Benzodiazepines Scrn U Oth Cocaine Metabols U Cannabinoids Screen Alcohol, Quantitative 186 H 10/05/17 10/05/17 10/05/17 14:56 15:17 21:45 WBC RBC Hgb Hct MCV MCH MCHC RDW Plt Count MPV Neut % (Auto) Lymph % (Auto) [place] % (Auto) Eos % (Auto) Baso % (Auto) Neut # (Auto) Lymph # (Auto) [place] # (Auto) Eos # (Auto) Baso # (Auto) PT INR APTT Sodium Potassium Chloride Carbon Dioxide Anion Gap BUN Creatinine Est GFR ( Amer) Est GFR (Non-Af Amer) POC Glucose (mg/dL) Random Glucose Calcium Total Bilirubin AST ALT Alkaline Phosphatase Troponin I Total Protein Albumin Globulin Albumin/Globulin Ratio Lipase Urine Color Yellow Urine Clarity Hazy Urine pH 6.0 Ur Specific [place] 1.009 Urine Protein Negative Urine Glucose (UA) Normal Urine Ketones Negative Urine Blood Negative Urine Nitrate Negative Urine Bilirubin Negative Urine Urobilinogen Normal Ur Leukocyte Esterase Neg Stool Occult Blood Negative Urine Opiates Screen Negative Urine Methadone Screen Negative Ur Barbiturates Screen Negative Ur Phencyclidine Scrn Negative Ur Amphetamines Screen Negative U Benzodiazepines Scrn Negative U Oth Cocaine Metabols Positive H U Cannabinoids Screen Negative Alcohol, Quantitative 10/06/17 10/06/17 10/06/17 07:13 07:13 12:05 WBC 2.9 L RBC 3.44 L Hgb 11.7 L Hct 34.2 L MCV 99.7 H MCH 34.1 H MCHC 34.2 RDW 16.8 H Plt Count 290 MPV 7.4 Neut % (Auto) Lymph % (Auto) [place] % (Auto) Eos % (Auto) Baso % (Auto) Neut # (Auto) Lymph # (Auto) [place] # (Auto) Eos # (Auto) Baso # (Auto) PT INR APTT Sodium Potassium Chloride Carbon Dioxide Anion Gap BUN Creatinine Est GFR ( Amer) Est GFR (Non-Af Amer) POC Glucose (mg/dL) 158 H Random Glucose Calcium Total Bilirubin AST ALT Alkaline Phosphatase Troponin I Total Protein Albumin Globulin Albumin/Globulin Ratio Lipase Urine Color Urine Clarity Urine pH Ur Specific [place] Urine Protein Urine Glucose (UA) Urine Ketones Urine Blood Urine Nitrate Urine Bilirubin Urine Urobilinogen Ur Leukocyte Esterase Stool Occult Blood Urine Opiates Screen Urine Methadone Screen Ur Barbiturates Screen Ur Phencyclidine Scrn Ur Amphetamines Screen U Benzodiazepines Scrn U Oth Cocaine Metabols U Cannabinoids Screen Alcohol, Quantitative < 10 Assessment & Plan - Assessment and Plan (Free Text) Assessment: ALC ABUSE INTOXICATION GASTRITIS DEPRESSION HIP PAIN COPD R/O PNUMONIA Plan: PER ORDERS - Date & Time Date: 10/06/17 Time: 13:41
--- NOTE | 2017-10-06 13:43 | PN ---
DATE: LOCATION: [address] [place] [address] B. SUBJECTIVE: This is a 52-year-old male seen and examined in rounds for GI consultation initially on 10/05/2017. Reexamined again today without any reported active bleeding. The entire chart is reviewed including but not limited to the most recent lab and radiologic study results, current and the previous medication list, current and the previous medical events. Today's lab showed hemoglobin 11.7, hematocrit 24.2, but normal platelet count with reported elevated AST and ALT yesterday indicative of alcoholic liver disease. His urine for cocaine was positive and alcohol quantitative was high . PHYSICAL EXAMINATION GENERAL: A 52-year-old male. VITAL SIGNS: Afebrile, with pulse of 80, respiratory rate 20 to 22, blood pressure 130/84. HEENT: Showed pale dry oral mucous membranes. Nonicteric sclerae. LUNGS: Few scattered crepitations. Decreased air entry at bases. HEART: Positive S1 and S2. ABDOMEN: Soft. Bowel sounds are present. EXTREMITIES: Without edema, clubbing, or cyanosis. NEUROLOGIC: No reported new neurological deficits, sensory or motor. IMPRESSION: 1. Drug abuse. 2. Alcoholism with alcoholic liver disease. 3. Known history of diabetes mellitus, , gastric ulcer, hypertension, and seizure disorder. 4. Known history of pneumonia. SUGGESTION: 1. Continue current management. 2. The patient has no evidence of active bleeding so far and stool for occult blood was negative. 3. At this point, proton pump inhibitor to continue and no need for aggressive GI workup in the meantime. Vijay Suárez MD
[2017-10-07] MEDS: Albuterol-Ipratrop 3 mg / 0.5 (3 ml) UD INH SCH ×4 (01:49→19:46)
[2017-10-07] MEDS: Oxycodone/Acetaminophen 5/325 mg Tab PO PRN ×3 (02:07→13:52)
--- NOTE | 2017-10-07 04:19 | CON ---
DATE: 10/06/2017. PSYCHIATRIC CONSULTATION CHIEF COMPLAINT AND REASON FOR CONSULTATION: The patient is referred by Dr. Vanna Gongora for evaluation and comanagement, the patient has a long history of alcohol dependence since age 10. The patient reports he has been drinking a pint of liquor daily. HISTORY OF PRESENT ILLNESS: This is a case of 52-year-old male with long history of alcohol dependence as well as hypertension. The patient came in vomiting blood. The patient said he vomited fives with blood having abdominal pain. The patient was admitted for GI bleed and also was diagnosed of pneumonia. The patient referred for comanagement as patient had a long history of alcohol dependence. He said he started drinking about 9 or 10. He said he had some periods when he was sober, but the patient states that he has been drinking almost daily a pint of liquor. The patient's blood alcohol level was 186. His drug screen was positive for cocaine which he did admit that he was using cocaine from time to time, but his choice is alcohol. The patient reports he has never been to rehab in the past and also he said that no pending alcohol related legal problems. The patient when seen today was complaining of pain in his hip and was asking for Percocet, he said he used to take it in the past. Other than that, he is restless, agitated, and asking something also to help him sleep but he cannot sleep and he is restless. PAST PSYCH HISTORY: History of depression, anxiety, history of alcohol dependence. The patient in the chart has history of being detox in 03/2016, he said he was not able to maintain sobriety. ALLERGIES: THE PATIENT HAS NO KNOWN ALLERGIES. DRUG AND ALCOHOL HISTORY: History of cocaine abuse. He has long history of alcohol dependence since age 9 or 10. He states his blood alcohol level was 186. Cocaine was positive. His liver enzymes were noted to be elevated. AST is 243, ALT is 195. Random blood glucose was 94. Creatinine is 0.5. PHYSICAL EXAMINATION: VITAL SIGNS: Temperature is 98.5, pulse 84, blood pressure 137/87, respirations 20, oxygen saturation is 100%. CURRENT MEDICATIONS: The patient is on albuterol, metronidazole, the patient is on pantoprazole, ceftriaxone, Sandoz, Tylenol, azithromycin and Zofran. REVIEW OF SYSTEMS: GENERAL: The patient is alert, oriented x3, very irritable demanding Percocet. He said he has very bad pain in his hip. The patient is very anxious, restless. SKIN: No diaphoresis. HEENT: No headache or dizziness. NECK: Supple. RESPIRATORY: No dyspnea. CARDIOVASCULAR: No chest pain. GASTROINTESTINAL: No recurrence of bleeding. Has abdominal pain and also still he is complaining of hip pain. MUSCULOSKELETAL: Feels weak. Has marked tremors noted. NEUROLOGIC: Alert and oriented x3. GENITOURINARY: No dysuria. MENTAL STATUS EXAMINATION: Well-developed male who looks stated age, who is 5 feet and 10 inches, weighs 172 pounds. The patient is very irritable, anxious demanding pain medications. Speech is spontaneous. Affect is reactive. Thought process, coherent. Thought content, the patient states he cannot sleep, he is very anxious and asking for pain meds. No overt paranoia. No hallucinations, no suicidal or homicidal ideation. Attention and memory seem to be limited. Insight and judgment is limited. Impulse control is guarded at this time. IMPRESSION: History of alcohol dependence, history of alcohol intoxication, cocaine abuse, gastrointestinal bleed, pneumonia. PLAN AND RECOMMENDATIONS: The patient was seen and meds reviewed. Continue present management. We will give something for pain. The patient had Percocet 5/325 two tabs p.o. every 6. p.r.n. for pain and then may have Ativan 1 mg IV every 6 p.r.n. for alcohol withdrawal and we will try to give him Restoril 30 mg at bedtime p.r.n. for insomnia. The patient may continue his antibiotics as ordered. The patient at this time seems to be not motivated to go for any outpatient or inpatient treatment but we will try to monitor him for signs and symptoms of alcohol withdrawal. Continue treatment plan as outlined. Thank you very much for the consult. Efren Vu MD [facility]
[2017-10-07] MEDS: Pantoprazole 80 MG in Sodium Chloride 0.9% 100 ML IV SCH ×2 (07:39→16:54)
[2017-10-07] MEDS: Azithromycin 500 MG in Sodium Chloride 0.9% 250 ML IVPB SCH (12:21)
--- NOTE | 2017-10-07 14:46 | PN ---
DATE: SUBJECTIVE: The patient is seen. The patient states he is not sleeping well. He is restless. The patient is now taking Ativan p.r.n., but asking a stronger sleeping pill. I will change his sleeping pill to Restoril 45 mg at bedtime standing, he can sleep. He is still complaining of pain. The patient has no obvious signs and symptoms of alcohol withdrawal. OBJECTIVE: VITAL SIGNS: Temperature is 97.9, pulse 80, blood pressure 125/86, respirations 18, oxygen saturation is 99% on room air. GENERAL: The patient has no recurrence of GI bleed. REVIEW OF SYSTEMS: GENERAL: Alert and oriented x3, irritable, but not in acute respiratory distress. The patient states he can sleep. SKIN: No diaphoresis. HEENT: No headache. No dizziness. NECK: Supple. RESPIRATORY: No dyspnea. CARDIOVASCULAR: No chest pain. GASTROINTESTINAL: No fabby bleeding. No abdominal pain. EXTREMITIES: Very mild tremors noted. MUSCULOSKELETAL: Feels week. GENITOURINARY: No dysuria. NEURO: Alert and oriented x3. MENTAL STATUS EXAMINATION: Well-developed male, who looks stated age, anxious, somatic state. He said he is able to sleep about two hours last night. Speech spontaneous. Affect is reactive. Thought process, coherent. Thought content, preoccupied about his sleeplessness. No psychosis. No suicidal or homicidal ideation. Attention and memory seem to be fair. Insight and judgment limited. Impulse control is fair at this time. IMPRESSION: History of alcohol dependence, alcohol withdrawal, gastrointestinal bleed. PLAN AND RECOMMENDATIONS: The patient is seen, medications reviewed. Continue Ativan p.r.n. as ordered. The patient has been using it, but may have Restoril 45 mg at bedtime. Continue pain meds as ordered. Continue antibiotics as ordered. Once the patient is medically stable, we will try to refer him to an outpatient substance abuse program if he is interested. Efren Vu MD
--- NOTE | 2017-10-07 14:57 | CARD ---
APPROVED REPORT EKG Measurement Heart [id number] <Conclusion> Normal sinus rhythm Normal ECG
--- NOTE | 2017-10-07 16:24 | PN ---
DATE: LOCATION: [address] [place] [address] B. SUBJECTIVE: This is a 52-year-old male seen and examined in rounds, without significant clinical changes or reported active bleeding. The entire chart is reviewed including but not limited to the most recent lab and radiology study results, current and the previous medication list, current and the previous medical events. The patient is seen by the Psychology and Oncology consultants. Today's lab still pending, but the patient reported to have low hemoglobin and hematocrit with increased blood glucose level and elevated AST and ALT. PHYSICAL EXAMINATION: GENERAL: A 52-year-old male. VITAL SIGNS: Afebrile, with pulse of 76, respiratory rate of 20 to 22, blood pressure of 130/84. HEENT: Showed pale, dry, oral mucous membranes. Nonicteric sclerae. LUNGS: Clear. Breathing sounds are present bilaterally. HEART: Positive S1 and S2. ABDOMEN: Soft, with mild generalized tenderness. No mass or organomegaly. No rebound tenderness or guarding. EXTREMITIES: With lower extremity mild edematous changes. No clubbing or cyanosis. NEUROLOGIC: No reported new neurological deficits, sensory or motor. IMPRESSION: 1. Re-exacerbation of peptic ulcer disease, no evidence of active bleeding since admission. 2. Known history of diabetes mellitus, hypertension, seizure disorder. 3. Alcoholism. 4. Bronchial asthma by history. 5. Known history of depression with anxiety. 6. Elevated liver function tests, most likely secondary to above. SUGGESTIONS: 1. Agree with your plan. 2. Serum lipase and amylase level. 3. Sectional abdominal and pelvic CAT scan. 4. Further recommendations to follow and no need for aggressive GI workup in the meantime as the patient has no evidence of active bleeding. Vijay Suárez MD
[2017-10-07] MEDS: Octreotide 1,250 MCG in Dextrose 5% In Water 250 ML IV SCH (17:24)
--- NOTE | 2017-10-07 17:41 | CP.PCM.PN ---
Subjective - Date & Time of Evaluation Date of Evaluation: 10/07/17 Time of Evaluation: 17:38 - Subjective Subjective: tolerated diet no vomiting no withdrwal hgb droped slightly and lft hi alc level dec to 10 cocain positive Objective - Vital Signs/Intake and Output Vital Signs (last 24 hours): Temp Pulse Resp BP Pulse Ox 98 F 86 18 153/105 H 100 10/07/17 15:40 10/07/17 15:40 10/07/17 15:40 10/07/17 15:40 10/07/17 15:40 Intake and Output: 10/07/17 10/07/17 06:59 18:59 Intake Total 590 670 Output Total 1325 350 Balance -735 320 - Medications Medications: Current Medications Acetaminophen (Tylenol 325mg Tab) 650 mg PO Q6 PRN PRN Reason: Pain, moderate (4-7) Last Admin: 10/06/17 06:11 Dose: 650 mg Albuterol/Ipratropium (Duoneb 3 Mg/0.5 Mg (3 Ml) Ud) 3 ml INH RQ6 MONIQUE Last Admin: 10/07/17 13:42 Dose: 3 ml Ceftriaxone Sodium 1 gm/ (Sodium Chloride) 100 mls @ 100 mls/hr IVPB DAILY MONIQUE PRN Reason: Protocol Last Admin: 10/07/17 10:00 Dose: 100 mls/hr Pantoprazole Sodium 80 mg/ (Sodium Chloride) 100 mls @ 10 mls/hr IV .Q10H MONIQUE PRN Reason: 8 MG/HR Last Admin: 10/07/17 16:54 Dose: 10 mls/hr Azithromycin 500 mg/ Sodium (Chloride) 250 mls @ 166.667 mls/hr IVPB DAILY MONIQUE PRN Reason: Protocol Last Admin: 10/07/17 12:21 Dose: 166.667 mls/hr Octreotide Acetate 1,250 mcg/ (Dextrose) 252.5 mls @ 5.05 mls/hr IV .Q24H MONIQUE PRN Reason: 25 MCG/HR Last Admin: 10/07/17 17:24 Dose: 5.05 mls/hr Lorazepam (Ativan) 1 mg IVP Q6H PRN PRN Reason: Anxiety Ondansetron HCl (Zofran Inj) 4 mg IVP Q6 PRN PRN Reason: Nausea/Vomiting Oxycodone/Acetaminophen (Percocet 5/325 Mg Tab) 2 tab PO Q6H PRN PRN Reason: pain Stop: 10/09/17 12:50 Last Admin: 10/07/17 13:52 Dose: 2 tab Temazepam (Restoril) 15 mg PO HS MONIQUE Temazepam (Restoril) 30 mg PO HS MONIQUE - Labs Labs: 10/06/17 07:13 10/05/17 14:56 PT 10.0 SECONDS (9.7-12.2) 10/05/17 14:56 INR 0.9 10/05/17 14:56 APTT 32 SECONDS (21-34) 10/05/17 14:56 - Constitutional Appears: Non-toxic - Head Exam Head Exam: ATRAUMATIC - Eye Exam Eye Exam: Normal appearance - ENT Exam ENT Exam: Mucous Membranes Moist - Neck Exam Neck Exam: Full ROM - Respiratory Exam Respiratory Exam: Decreased Breath Sounds - Cardiovascular Exam Cardiovascular Exam: REGULAR RHYTHM - GI/Abdominal Exam GI & Abdominal Exam: Normal Bowel Sounds - Rectal Exam Rectal Exam: NORMAL INSPECTION - Extremities Exam Extremities Exam: Normal Inspection - Neurological Exam Neurological Exam: Alert, Oriented x3 - Psychiatric Exam Psychiatric exam: Normal Affect - Skin Skin Exam: Pallor Assessment and Plan (1) Gastrointestinal hemorrhage Status: Acute (2) Pneumonia Status: Acute (3) Alcohol abuse Status: Acute (4) Alcohol dependence Status: Acute
[2017-10-07 18:34] VITALS: RESP 20
[2017-10-07] MEDS: oxyCODONE 5 mg Immediate Release Tab PO PRN (19:15)
[2017-10-08] MEDS: oxyCODONE 5 mg Immediate Release Tab PO PRN ×2 (01:50→08:14)
[2017-10-08] MEDS: Albuterol-Ipratrop 3 mg / 0.5 (3 ml) UD INH SCH ×2 (02:00→08:02)
[2017-10-08 07:38] LABS: HEMOGLOBIN 11.5 g/dL (12.0-18.0); MEAN CELL VOLUME 100.3 fL (80.0-94.0); MEAN CORPUSCULAR HEMOGLOBIN 34.5 pg (27.0-31.0); MEAN CORPUSCULAR HGB CONC 34.4 g/dL (33.0-37.0); MEAN PLATELET VOLUME 7.4 fL (7.2-11.7); RBC 3.33 Mil/uL (4.40-5.90); WHITE BLOOD COUNT 3.3 K/uL (4.8-10.8)
[2017-10-08 08:25] VITALS: PULSE 72; TEMP 98; O2SAT 100
[2017-10-08 08:31] VITALS: BP 132/89
[2017-10-08] MEDS: Azithromycin 500 MG in Sodium Chloride 0.9% 250 ML IVPB SCH (10:26)
--- NOTE | 2017-10-08 10:55 | CP.PCM.PN ---
Subjective - Date & Time of Evaluation Date of Evaluation: 10/08/17 Time of Evaluation: 10:52 - Subjective Subjective: pt seen examined feels good anexious to to go home Objective - Vital Signs/Intake and Output Vital Signs (last 24 hours): Temp Pulse Resp BP Pulse Ox 98 F 72 20 132/89 100 10/08/17 07:00 10/08/17 07:00 10/08/17 07:00 10/08/17 07:00 10/08/17 07:00 Intake and Output: 10/08/17 10/08/17 06:59 18:59 Output Total 1000 Balance -1000 - Medications Medications: Current Medications Acetaminophen (Tylenol 325mg Tab) 650 mg PO Q6 PRN PRN Reason: Pain, moderate (4-7) Last Admin: 10/06/17 06:11 Dose: 650 mg Albuterol/Ipratropium (Duoneb 3 Mg/0.5 Mg (3 Ml) Ud) 3 ml INH RQ6 MONIQUE Last Admin: 10/08/17 08:02 Dose: 3 ml Clonidine HCl (Catapres) 0.2 mg PO BID MONIQUE Last Admin: 10/08/17 10:25 Dose: 0.2 mg Ceftriaxone Sodium 1 gm/ (Sodium Chloride) 100 mls @ 100 mls/hr IVPB DAILY MONIQUE PRN Reason: Protocol Last Admin: 10/08/17 10:25 Dose: Not Given Azithromycin 500 mg/ Sodium (Chloride) 250 mls @ 166.667 mls/hr IVPB DAILY MONIQUE PRN Reason: Protocol Last Admin: 10/08/17 10:26 Dose: Not Given Lorazepam (Ativan) 1 mg IVP Q6H PRN PRN Reason: Anxiety Ondansetron HCl (Zofran Inj) 4 mg IVP Q6 PRN PRN Reason: Nausea/Vomiting Oxycodone HCl (Oxycodone Immediate Release Tab) 5 mg PO Q6 PRN PRN Reason: Pain, moderate (4-7) Last Admin: 10/08/17 08:14 Dose: 5 mg Temazepam (Restoril) 15 mg PO HS [facility] Last Admin: 10/07/17 21:34 Dose: 15 mg - Labs Labs: 10/08/17 07:20 10/05/17 14:56 PT 10.0 SECONDS (9.7-12.2) 10/05/17 14:56 INR 0.9 10/05/17 14:56 APTT 32 SECONDS (21-34) 10/05/17 14:56 - Constitutional Appears: Well - Head Exam Head Exam: ATRAUMATIC - Eye Exam Eye Exam: Normal appearance, PERRL - ENT Exam ENT Exam: Mucous Membranes Moist - Cardiovascular Exam Cardiovascular Exam: REGULAR RHYTHM - GI/Abdominal Exam GI & Abdominal Exam: Normal Bowel Sounds - Rectal Exam Rectal Exam: NORMAL INSPECTION - Back Exam Back Exam: NORMAL INSPECTION - Neurological Exam Neurological Exam: Alert, Awake, CN II-XII Intact - Psychiatric Exam Psychiatric exam: Normal Affect - Skin Skin Exam: Normal Color Assessment and Plan (1) Gastrointestinal hemorrhage Status: Acute (2) Pneumonia Status: Acute (3) Alcohol abuse Status: Acute (4) Alcohol dependence Status: Acute - Assessment and Plan (Free Text) Assessment: pnumonia ac abuse cocain abuse s/p vomiting tolerating diet well Plan: will d/c pt today
--- NOTE | 2017-10-08 11:20 | CP.PCM.PN ---
Subjective - Date & Time of Evaluation Date of Evaluation: 10/08/17 Time of Evaluation: 11:18 - Subjective Subjective: PT SEEN BY DR. JENKINS THIS MORNING AND CLEARED FOR D/C HOME TODAY. NOT TO BE GIVEN NARCOTICS RX PER DR. JENKINS; PT HAS H/O DRUG ABUSE AND COCAINE USE. HE MAY TAKE TYLENOL REGULAR STRENGTH OTC PRN; NO NSAIDS 2/2 GI BLEED. RX GIVEN FOR PPI AND ZITHROMAX X5 DAYS. TO F/U WITH Ida JENKINS AND CONSULTS NOTED BELOW. SEE BELOW FOR D/C PLAN PROVIDED TO THE PT. NO FURTHER ORDERS. -FOLLOW UP WITH DR. JENKINS OR YOUR PRIMARY DOCTOR IN THE OFFICE IN 5-7 DAYS--- CALL THE OFFICE FOR APPT. -FOLLOW DR. LUX (STOMACH DOCTOR) AND DR. BAIRD (PSYCHIATRIST) IN THE OFFICE WITHIN 7-10 DAYS---CALL THE OFFICE FOR APPT. -CONTINUE CURRENT HOME MEDS USUAL. -IF YOU HAVE PAIN, TAKE REGULAR STRENGTH TYLENOL EVERY 6 HOURS ONLY IF NEEDED ( 325MG TABLETS [TAKE 2 TABS]). -CONTINUE THE ANTIBIOTIC, ZITHROMAX, FOR 5 MORE DAYS FOR YOUR LUNG INFECTION. -CONTINUE PANTOPRAZOLE FOR YOUR STOMACH ISSUES. -DO NOT TAKE MOTRIN, IBUPROFEN, ALEVE, NAPROXEN, NAPROSYN, THIS WILL CAUSE STOMACH BLEEDING AGAIN. -FOR FURTHER QUESTIONS, CONTACT DR. JENKINS. Objective - Vital Signs/Intake and Output Vital Signs (last 24 hours): Temp Pulse Resp BP Pulse Ox 98 F 72 20 132/89 100 10/08/17 07:00 10/08/17 07:00 10/08/17 07:00 10/08/17 07:00 10/08/17 07:00 Intake and Output: 10/08/17 10/08/17 06:59 18:59 Output Total 1000 Balance -1000 - Medications Medications: Current Medications Acetaminophen (Tylenol 325mg Tab) 650 mg PO Q6 PRN PRN Reason: Pain, moderate (4-7) Last Admin: 10/06/17 06:11 Dose: 650 mg Albuterol/Ipratropium (Duoneb 3 Mg/0.5 Mg (3 Ml) Ud) 3 ml INH RQ6 MONIQUE Last Admin: 10/08/17 08:02 Dose: 3 ml Clonidine HCl (Catapres) 0.2 mg PO BID MONIQUE Last Admin: 10/08/17 10:25 Dose: 0.2 mg Ceftriaxone Sodium 1 gm/ (Sodium Chloride) 100 mls @ 100 mls/hr IVPB DAILY MONIQUE PRN Reason: Protocol Last Admin: 10/08/17 10:25 Dose: Not Given Azithromycin 500 mg/ Sodium (Chloride) 250 mls @ 166.667 mls/hr IVPB DAILY MONIQUE PRN Reason: Protocol Last Admin: 10/08/17 10:26 Dose: Not Given Lorazepam (Ativan) 1 mg IVP Q6H PRN PRN Reason: Anxiety Ondansetron HCl (Zofran Inj) 4 mg IVP Q6 PRN PRN Reason: Nausea/Vomiting Oxycodone HCl (Oxycodone Immediate Release Tab) 5 mg PO Q6 PRN PRN Reason: Pain, moderate (4-7) Last Admin: 10/08/17 08:14 Dose: 5 mg Temazepam (Restoril) 15 mg PO HS [facility] Last Admin: 10/07/17 21:34 Dose: 15 mg - Labs Labs: 10/08/17 07:20 10/05/17 14:56 PT 10.0 SECONDS (9.7-12.2) 10/05/17 14:56 INR 0.9 10/05/17 14:56 APTT 32 SECONDS (21-34) 10/05/17 14:56
--- NOTE | 2017-10-08 13:29 | PN ---
DATE: LOCATION: [facility], [facility] B. SUBJECTIVE: This is a 52-year-old male seen and examined in rounds, refusing IV fluids, reported to ask for discharge to home today. It has to be mentioned that as per the Nursing and Medical staff, no reported nausea or vomiting, no reported active bleeding, but intermittent periods of complaint of some abdominal pain. Today's lab showed white blood cells of 3.3, hemoglobin 11.5, hematocrit 33.4, with increased indices, secondary to probably his past medical history. Blood glucose level today is 90 and his hepatitis profile results are still negative. PHYSICAL EXAMINATION GENERAL: A 52-year-old male, awake, alert. VITAL SIGNS: Afebrile, pulse of 70, respiratory rate of 18 to 20, blood pressure of 128/82. HEENT: Showed pale, dry oral mucous membranes. Nonicteric sclerae. LUNGS: Few scattered crepitations. Decreased air entry at bases. HEART: Positive S1 and S2. ABDOMEN: Soft, bowel sounds are present, with mild generalized tenderness. No mass or organomegaly. No rebound tenderness or guarding. EXTREMITIES: Without significant edema, clubbing, or cyanosis. NEUROLOGIC: No reported new neurological deficits, sensory or motor. No reported new focal deficits. IMPRESSION: 1. Peptic ulcer disease. 2. Diabetic gastroparesis probably. 3. Alcoholism with abnormal liver function tests secondary to alcoholic liver disease. 4. Known history of diabetes mellitus, hypertension, seizure disorder, and bronchial asthma. 5. Known history of severe anxiety syndrome with depression. SUGGESTIONS: 1. Agree with your plan. 2. Psychiatric reevaluation. 3. The patient is refusing any aggressive GI workup. We will follow up with you p.r.n. 4. Further recommendations to follow. Vijay Suárez MD
--- NOTE | 2017-10-08 17:54 | CARD ---
APPROVED REPORT EKG Measurement Heart [id number] <Conclusion> Normal sinus rhythm Poor R wave progression Abnormal ECG
--- NOTE | 2017-10-09 11:20 | CON ---
DATE: 10/05/[address] Suárez to Dr. Vanna Mullins. I was called for GI consultation by the admitting MD as well as the ER staff. The patient is examined and seen for GI consultation on 10/05/2017. The entire chart is reviewed including but not limited to the most recent lab and radiology study results, current and the previous medication list, current and the previous medical events, allergy to medication list, as well as all the available current and the previous medical records. HISTORY OF PRESENT ILLNESS: This is a 52-year-old male who was admitted to the hospital through the emergency room with a complaint of severe midepigastric pain, but heavy alcohol intake, but no reported chills, fever, with reported nausea and vomiting for the last 5-6 days with hematemesis. No reported melena, headache, chest pain, shortness of breath, chills, or palpitation. It has to be mentioned that the patient had no episodes of active bleeding since admission to the floor. PAST MEDICAL HISTORY: Including mainly but not limited to, 1. Alcoholism with alcoholic liver disease. 2. ____ GI bleeding with acute gastritis before. 3. Known history of depression, severe anxiety syndrome, diabetes mellitus, hypertension, with alcohol-induced seizure disorder. 4. Known history of pneumonia, believed to be secondary to aspiration pneumonia. 5. History of alcoholic detoxication before on several occasions. FAMILY HISTORY: Unknown. SOCIAL HISTORY: Positive for excessive alcohol intake, but no cigarette smoking. CURRENT MEDICATIONS: Medication list on both admission reviewed. ALLERGIES TO MEDICATION: UNCLEAR. LABORATORY DATA: After being admitted to the hospital, the patient was found to have low white blood cells of 3.1, hematocrit 34.2, but normal hemoglobin and normal platelet count. Sodium 130, with glucose 74, with low BUN and creatinine. PHYSICAL EXAMINATION: GENERAL: A 52-year-old male, awake, alert, oriented. VITAL SIGNS: Afebrile, with pulse of 88, respiratory rate 20 to 22, with blood pressure 146/86. HEENT: Showed pale, dry mucous membranes. Bilateral icteric sclerae mildly. LYMPH NODES: No lymphadenitis or lymphadenopathy. LUNGS: Few scattered crepitations with decreased air entry at bases. HEART: Positive S1 and S2. ABDOMEN: Soft, with diffuse tenderness. Bowel sounds are present. No mass or organomegaly. No rebound tenderness or guarding. RECTAL: The patient refused. EXTREMITIES: Without significant edema, clubbing, or cyanosis. NEUROLOGIC: No reported new neurological deficits, sensory or motor. No new reported focal deficits. Peripheral pulses are present bilaterally. IMPRESSION: 1. Reported hematemesis, but with normal hemoglobin and hematocrit, no more episodes of bleeding. 2. Alcoholism with alcoholic liver disease. 3. Alcohol-induced seizure disorder by history. 4. Multiple past medical history as mentioned above. SUGGESTIONS: 1. Agree with your plan. 2. Abdominal ultrasound with insertion of biliary stent and pancreatitis. 3. Serum lipase and amylase level. 4. Proton pump inhibitors IV. 5. Reglan IV. 6. Carafate liquid p.o. 7. Psychiatric evaluation. 8. Guaiac all the stools daily x3. 9. Cancer markers. 10. Upper GI with small bowel follow-through as the patient has not any further episodes of nausea and vomiting. 11. No need for any aggressive GI workup in the meantime. Thank you for letting me participate in your patient's case management. We will follow up closely with you. Vijay Suárez MD
== END 2017-10-08 11:40 | disposition home or self-care (01) | DRG 552 ==
LOC: C.ER 13:10 → C.9E 15:45 → C.6T 19:02
PROVIDERS: ADMIT Internal Medicine; ATTEND Internal Medicine
DX: K92.2 Gastrointestinal hemorrhage, unspecified (principal); J18.9 Pneumonia, unspecified organism; F14.90 Cocaine use, unspecified, uncomplicated; E11.43 Type 2 diabetes mellitus with diabetic autonomic (poly)neuropathy; K70.9 Alcoholic liver disease, unspecified; F10.20 Alcohol dependence, uncomplicated; G40.909 Epilepsy, unspecified, not intractable, without status epilepticus; I10 Essential (primary) hypertension; K29.70 Gastritis, unspecified, without bleeding; K31.84 Gastroparesis; Y90.6 Blood alcohol level of 120-199 mg/100 ml; D64.9 Anemia, unspecified; F32.9 Major depressive disorder, single episode, unspecified; K27.9 Peptic ulcer, site unspecified, unspecified as acute or chronic, without hemorrhage or perforation

== ENCOUNTER 2017-10-12 02:21 | Emergency (ER) | payer MEDICAID ==
[2017-10-12 02:21] VITALS: BMI 22.9
[2017-10-12 02:41] VITALS: BP 100/60; PULSE 74; RESP 20; TEMP 98; O2SAT 98
--- NOTE | 2017-10-12 03:06 | C.PDOC ---
Time Seen by Provider: 10/12/17 02:45 Chief Complaint (Nursing): Lower Extremity Problem/Injury Past Medical History Vital Signs: Last Vital Signs Temp 98 F 10/12/17 02:33 Pulse 74 10/12/17 02:33 Resp 20 10/12/17 02:33 BP 100/60 10/12/17 02:33 Pulse Ox 98 10/12/17 03:06 - Medical History PMH: Asthma, Depression, Diabetes, Gastritis, Gastrointestinal Ulcer, HTN, Pneumonia, Seizures Denies: Chronic Kidney Disease Surgical History: Endoscopy Denies: Appendectomy - [facility] Procedures ALCOHOL DETOXIFICATION (06/06/14) DETOXIFICATION SERVICES FOR SUBSTANCE ABUSE TREATMENT (03/30/16) ESOPHAGOGASTRODUODENOSCOPY [EGD] W/CLOSED BIOPSY (07/31/13) INDIV PSYCHOTHERAPY FOR SUBSTANCE ABUSE TREATMENT, SUPPORT (03/30/16) INFLUENZA VACCINATION (07/31/13) INJECT/INFUSE ELECTROLYT (07/07/14) INJECT/INFUSE NEC (07/07/14) INTRODUCTION OF SERUM/TOX/VACCINE INTO MUSCLE, PERC APPROACH (02/12/17) TETANUS TOXOID ADMINIST (08/06/14) VACCINATION NEC (07/31/13) Family History: States: Unknown Family Hx - Social History Hx Tobacco Use: No Hx Alcohol Use: Yes Hx Substance Use: No - Immunization History Hx Tetanus Toxoid Vaccination: No Hx Influenza Vaccination: Yes Hx Pneumococcal Vaccination: No ED Course And Treatment O2 Sat by Pulse Oximetry: 98 Medical Decision Making Medical Decision Making: pt eloped from ED, was not seen by a provider. Disposition - Disposition Disposition: LEFT W/O BEING SEEN - ER ONLY Disposition Time: 02:50 Condition: UNKNOWN Forms: [facility] (Thai) - Clinical Impression Clinical Impression: Right leg pain, Alcohol use
== END 2017-10-12 03:35 | disposition left against medical advice (07) ==
LOC: C.ER 02:21
DX: Z02.89 Encounter for other administrative examinations (principal); M79.661 Pain in right lower leg

== ENCOUNTER 2017-10-13 00:32 | Emergency (ER) | payer MEDICAID ==
[2017-10-13 00:32] VITALS: BMI 22.9
--- NOTE | 2017-10-13 00:36 | C.PDOC ---
Time Seen by Provider: 10/13/17 00:33 Past Medical History - Medical History PMH: Asthma, Depression, Diabetes, Gastritis, Gastrointestinal Ulcer, HTN, Pneumonia, Seizures Denies: Chronic Kidney Disease Surgical History: Endoscopy Denies: Appendectomy - [facility] Procedures ALCOHOL DETOXIFICATION (06/06/14) DETOXIFICATION SERVICES FOR SUBSTANCE ABUSE TREATMENT (03/30/16) ESOPHAGOGASTRODUODENOSCOPY [EGD] W/CLOSED BIOPSY (07/31/13) INDIV PSYCHOTHERAPY FOR SUBSTANCE ABUSE TREATMENT, SUPPORT (03/30/16) INFLUENZA VACCINATION (07/31/13) INJECT/INFUSE ELECTROLYT (07/07/14) INJECT/INFUSE NEC (07/07/14) INTRODUCTION OF SERUM/TOX/VACCINE INTO MUSCLE, PERC APPROACH (02/12/17) TETANUS TOXOID ADMINIST (08/06/14) VACCINATION NEC (07/31/13) Family History: States: Unknown Family Hx - Social History Hx Tobacco Use: No Hx Alcohol Use: Yes Hx Substance Use: No - Immunization History Hx Tetanus Toxoid Vaccination: No Hx Influenza Vaccination: Yes Hx Pneumococcal Vaccination: No Medical Decision Making Medical Decision Making: extensive psych and alcohol hx seen in our ED and [facility] ED yesterday no acute issues. malingering warm enough out for safe d/c Disposition Doctor Will See Patient In The: Office Counseled Patient/Family Regarding: Studies Performed, Diagnosis - Disposition Disposition: HOME/ ROUTINE Disposition Time: 00:35 Condition: GOOD - Clinical Impression Clinical Impression: Homeless single person, Alcohol abuse, Malingering
[2017-10-13 00:38] VITALS: BP 129/85; PULSE 96; RESP 22; TEMP 97.7; O2SAT 100
== END 2017-10-13 00:50 | disposition home or self-care (01) ==
LOC: C.ER 00:32 → SUPCPDRO 00:32 → C.ER 00:50
DX: F10.10 Alcohol abuse, uncomplicated (principal); Z76.5 Malingerer [conscious simulation]; Z59.0 Homelessness

== ENCOUNTER 2017-10-19 01:19 | Emergency (ER) | payer MEDICAID ==
[2017-10-19 01:19] VITALS: BMI 22.9
[2017-10-19 01:57] VITALS: RESP 18; TEMP 97.4; O2SAT 98
--- NOTE | 2017-10-19 02:06 | C.PDOC ---
History Of Present Illness 52 y/o male presents to the ED requesting a place to stay the night. Patient admits to drinking heavily today. No physical complaints. Denies having suicidal or homicidal ideation. Time Seen by Provider: 10/19/17 02:05 Chief Complaint (Nursing): Substance Abuse History Per: Patient History/Exam Limitations: no limitations Onset/Duration Of Symptoms: Days Current Symptoms Are (Timing): Still Present Suicide/Self Injury Attempted (Context): None Modifying Factor(s): Alcohol Severity: None Pain Scale Rating Of: 0 Recent travel outside of the [place]: No Past Medical History Reviewed: Historical Data, Nursing Documentation, Vital Signs Vital Signs: Last Vital Signs Temp 97.4 F L 10/19/17 01:54 Pulse 78 10/19/17 04:27 Resp 18 10/19/17 04:27 BP 136/85 10/19/17 04:27 Pulse Ox 98 10/19/17 04:27 - Medical History PMH: Asthma, Depression, Diabetes, Gastritis, Gastrointestinal Ulcer, HTN, Pneumonia, Seizures Denies: Chronic Kidney Disease Surgical History: Endoscopy Denies: Appendectomy - [facility] Procedures ALCOHOL DETOXIFICATION (06/06/14) DETOXIFICATION SERVICES FOR SUBSTANCE ABUSE TREATMENT (03/30/16) ESOPHAGOGASTRODUODENOSCOPY [EGD] W/CLOSED BIOPSY (07/31/13) INDIV PSYCHOTHERAPY FOR SUBSTANCE ABUSE TREATMENT, SUPPORT (03/30/16) INFLUENZA VACCINATION (07/31/13) INJECT/INFUSE ELECTROLYT (07/07/14) INJECT/INFUSE NEC (07/07/14) INTRODUCTION OF SERUM/TOX/VACCINE INTO MUSCLE, PERC APPROACH (02/12/17) TETANUS TOXOID ADMINIST (08/06/14) VACCINATION NEC (07/31/13) Family History: States: Unknown Family Hx - Social History Hx Tobacco Use: No Hx Alcohol Use: Yes Hx Substance Use: Yes (crack) - Immunization History Hx Tetanus Toxoid Vaccination: No Hx Influenza Vaccination: Yes Hx Pneumococcal Vaccination: No Review Of Systems Constitutional: Negative for: Fever Respiratory: Negative for: Shortness of Breath Psych: Negative for: Suicidal ideation Physical Exam - Physical Exam Appears: Non-toxic, No Acute Distress Skin: Warm, Dry Head: Normacephalic Eye(s): bilateral: Normal Inspection Oral Mucosa: Moist Neck: Supple Chest: Symmetrical Cardiovascular: Rhythm Regular Respiratory: No Rales, No Rhonchi, No Wheezing Gastrointestinal/Abdominal: Soft, No Tenderness, No Distention Extremity: Bilateral: Atraumatic, Normal ROM Pulses: Left Dorsalis Pedis: Normal, Right Dorsalis Pedis: Normal Neurological/Psych: Oriented x3 Gait: Steady ED Course And Treatment O2 Sat by Pulse Oximetry: 98 (RA) Pulse Ox Interpretation: Normal Progress Note: Finger stick is 78. Patient is resting comfortably, in no acute distress. No acute complaints at this time. Reevaluation Time: 04:50 Reassessment Condition: Improved Disposition Counseled Patient/Family Regarding: Studies Performed, Diagnosis, Need For Followup - Disposition Referrals: [facility] at [facility] [Outside] Disposition: HOME/ ROUTINE Disposition Time: 02:06 Condition: FAIR Instructions: Alcohol Abuse and Alcoholism (DC) Forms: [employer] [facility] (Nepali) - Clinical Impression Clinical Impression: Alcohol abuse with intoxication - Scribe Statement The provider has reviewed the documentation as recorded by the Scribe (Verónica Roe) Provider Attestation: All medical record entries made by the Scribe were at my direction and personally dictated by me. I have reviewed the chart and agree that the record accurately reflects my personal performance of the history, physical exam, medical decision making, and the department course for this patient. I have also personally directed, reviewed, and agree with the discharge instructions and disposition.
[2017-10-19 04:27] VITALS: BP 136/85; PULSE 78
== END 2017-10-19 04:54 | disposition home or self-care (01) ==
LOC: C.ER 01:19 → SUPCPDRO 01:19 → C.ER 04:54
DX: F10.129 Alcohol abuse with intoxication, unspecified (principal); Y90.9 Presence of alcohol in blood, level not specified

== ENCOUNTER 2017-10-19 14:52 | Emergency (ER) | payer MEDICAID ==
[2017-10-19 15:05] VITALS: BMI 24.3
[2017-10-19 15:08] VITALS: BP 133/93; PULSE 96; RESP 18; TEMP 97.8; O2SAT 100
== END 2017-10-19 15:05 | disposition left against medical advice (07) ==
LOC: C.ER 14:52
DX: Z02.89 Encounter for other administrative examinations (principal); F10.10 Alcohol abuse, uncomplicated
CPT/HCPCS: 82948; LWBS0

== ENCOUNTER 2017-10-22 23:21 | Emergency (ER) | payer MEDICAID ==
[2017-10-22 23:21] VITALS: BMI 24.7
--- NOTE | 2017-10-22 23:44 | C.PDOC ---
History Of Present Illness Patient presents to ED stating he has been drinking. Patient states he fell today and he is not sure if he lost conscious. Denies fever, chills, nausea, vomiting or any other physical complaints. - HPI Time Seen by Provider: 10/22/17 23:43 Chief Complaint (Nursing): Trauma History Per: Patient History/Exam Limitations: no limitations Onset/Duration Of Symptoms: Hrs Injury Occurred (Timing): Hours Ago: Recent travel outside of the [place]: No Past Medical History Reviewed: Historical Data, Nursing Documentation, Vital Signs Vital Signs: Last Vital Signs Temp 97.9 F 10/23/17 01:12 Pulse 101 H 10/23/17 03:53 Resp 18 10/23/17 03:53 BP 135/84 10/23/17 03:53 Pulse Ox 98 10/23/17 03:53 - Medical History PMH: Asthma, Depression, Diabetes, Gastritis, Gastrointestinal Ulcer, HTN, Pneumonia, Seizures Surgical History: Endoscopy - [facility] Procedures ALCOHOL DETOXIFICATION (06/06/14) DETOXIFICATION SERVICES FOR SUBSTANCE ABUSE TREATMENT (03/30/16) ESOPHAGOGASTRODUODENOSCOPY [EGD] W/CLOSED BIOPSY (07/31/13) INDIV PSYCHOTHERAPY FOR SUBSTANCE ABUSE TREATMENT, SUPPORT (03/30/16) INFLUENZA VACCINATION (07/31/13) INJECT/INFUSE ELECTROLYT (07/07/14) INJECT/INFUSE NEC (07/07/14) INTRODUCTION OF SERUM/TOX/VACCINE INTO MUSCLE, PERC APPROACH (02/12/17) TETANUS TOXOID ADMINIST (08/06/14) VACCINATION NEC (07/31/13) Family History: States: No Known Family Hx - Social History Hx Tobacco Use: No Hx Alcohol Use: Yes Hx Substance Use: Yes (crack) - Immunization History Hx Tetanus Toxoid Vaccination: No Hx Influenza Vaccination: Yes Hx Pneumococcal Vaccination: No Review Of Systems Constitutional: Negative for: Fever, Chills Eyes: Negative for: Vision Change Cardiovascular: Negative for: Chest Pain Respiratory: Negative for: Shortness of Breath Gastrointestinal: Negative for: Nausea, Vomiting, Abdominal Pain, Diarrhea Skin: Negative for: Rash Neurological: Negative for: Weakness, Numbness Psych: Negative for: Suicidal ideation Physical Exam - Physical Exam Appears: Non-toxic, No Acute Distress Skin: Warm, Dry Head: Normacephalic, Other (small lump on left scalp, no crepitus) Eye(s): bilateral: Normal Inspection Ear(s): Bilateral: Normal Nose: Normal, No Epistaxis, No Deformity Oral Mucosa: Moist Neck: Trachea Midline, Supple Chest: Symmetrical, No Tenderness Cardiovascular: Rhythm Regular Respiratory: Normal Breath Sounds, No Decreased Breath Sounds, No Rales, No Rhonchi, No Wheezing Gastrointestinal/Abdominal: Soft, No Tenderness, No Distention Extremity: Normal ROM (Full ROM), Other (Small abrasion on left knee) Extremity: Bilateral: Normal Color And Temperature, Normal ROM Pulses: Left Dorsalis Pedis: Normal, Right Dorsalis Pedis: Normal Neurological/Psych: Oriented x3 (Awkae and alert), Normal Speech Gait: Steady ED Course And Treatment O2 Sat by Pulse Oximetry: 97 (RA) Pulse Ox Interpretation: Normal - CT Scan/US CT Head Other Rad Studies (CT/US): Read By Radiologist, Radiology Report Reviewed CT/US Interpretation: EXAM: CT Head Without Intravenous Contrast. CLINICAL HISTORY: 52 years old, male; Pain; Headache; Patient HX: 10-22-17 images sent; Additional info: Fall, left. pariatal swelling. TECHNIQUE: Axial computed tomography images of the head/brain without intravenous contrast. All CT scans at. this facility use one or more dose reduction techniques, viz.: automated exposure control; ma/kV. adjustment per patient size (including targeted exams where dose is matched to indication; i.e. head);. or iterative reconstruction technique. Coronal and sagittal reformatted images were created and reviewed. COMPARISON: CT - HEAD W/O CONTRAST 2017-10-03 20:43. FINDINGS: Brain: Unremarkable. No significant white matter disease. No edema. No intracranial mass, mass. effect, or midline shift. Ventricles: Unremarkable. No ventriculomegaly. Bones/joints: See below. Soft tissues: Frontal extracranial soft tissue swelling. Left posterior parietal extracranial soft tissue. swelling. Sinuses: Left maxillary sinus mucosal thickening versus small amount of fluid. Mastoid air cells: Unremarkable as visualized. No mastoid effusion. Nasopharynx: Nasal bone deformity, likely old. [facility]. [employer] [facility]. Final Radiology Report [phone]. Name: BASILIO PEDERSON Age: 52Years M Date: 10/22/2017. SSN: [id number] : 1965. Study: CT HEAD WO Requesting Physician: MOISÉS NOBLE. Images: 373. Addl Studies: Provided Clinical History: fall, left pariatal swelling. CONFIDENTIALITY STATEMENT. This transmission is confidential and is intended to be a privileged communication. It is intended only for the use of the addressee. Access to this. message by anyone else is unauthorized. If you are not the intended recipient, any disclosure, copying, distribution or any action taken, or omitted to. be taken in reliance on it is prohibited and may be unlawful. If you received this communication in error, please notify us by telephone, so that return. of this document to us can be arranged. Page 2 of 2. IMPRESSION: No acute intracranial abnormality. Progress Note: Ordered CT Head Reevaluation Time: 04:43 Reassessment Condition: Improved Disposition Counseled Patient/Family Regarding: Studies Performed, Diagnosis, Need For Followup - Disposition Referrals: [facility] at [facility] [Outside] Disposition: HOME/ ROUTINE Disposition Time: 23:44 Condition: FAIR Instructions: Minor Head Injury (DC), Alcohol Abuse and Alcoholism (DC) Forms: [employer] [facility] (Slovenian) - Clinical Impression Clinical Impression: Alcohol dependence, Alcohol intoxication, Minor head injury, Contusion of knee , left - Scribe Statement The provider has reviewed the documentation as recorded by the Rima Doan All medical record entries made by the Violetaibgian were at my direction and personally dictated by me. I have reviewed the chart and agree that the record accurately reflects my personal performance of the history, physical exam, medical decision making, and the department course for this patient. I have also personally directed, reviewed, and agree with the discharge instructions and disposition.
--- NOTE | 2017-10-23 00:45 | CT ---
EXAM: CT Head Without Intravenous Contrast CLINICAL HISTORY: 52 years old, male; Pain; Headache; Patient HX: 10-22-17 images sent; Additional info: Fall, left pariatal swelling TECHNIQUE: Axial computed tomography images of the head/brain without intravenous contrast. All CT scans at this facility use one or more dose reduction techniques, viz.: automated exposure control; ma/kV adjustment per patient size (including targeted exams where dose is matched to indication; i.e. head); or iterative reconstruction technique. Coronal and sagittal reformatted images were created and reviewed. COMPARISON: CT - HEAD W/O CONTRAST 2017-10-03 20:43 FINDINGS: Brain: Unremarkable. No significant white matter disease. No edema. No intracranial mass, mass effect, or midline shift. Ventricles: Unremarkable. No ventriculomegaly. Bones/joints: See below. Soft tissues: Frontal extracranial soft tissue swelling. Left posterior parietal extracranial soft tissue swelling. Sinuses: Left maxillary sinus mucosal thickening versus small amount of fluid. Mastoid air cells: Unremarkable as visualized. No mastoid effusion. Nasopharynx: Nasal bone deformity, likely old. IMPRESSION: No acute intracranial abnormality.
[2017-10-23 01:13] VITALS: RESP 18; TEMP 97.9
[2017-10-23 03:54] VITALS: BP 135/84; PULSE 101
[2017-10-23 04:45] VITALS: O2SAT 97
== END 2017-10-23 05:44 | disposition home or self-care (01) ==
LOC: C.ER 23:21
DX: S09.90XA Unspecified injury of head, initial encounter (principal); S80.02XA Contusion of left knee, initial encounter; W19.XXXA Unspecified fall, initial encounter; F10.229 Alcohol dependence with intoxication, unspecified; Y90.9 Presence of alcohol in blood, level not specified

== ENCOUNTER 2017-10-24 23:50 | Emergency (ER) | payer MEDICAID ==
[2017-10-24 23:50] VITALS: BMI 24.7
--- NOTE | 2017-10-25 03:12 | C.PDOC ---
History Of Present Illness 52 year old male with PMHx of alcohol abuse presents to the ED c/o left shoulder pain. Patient reports he fell a few days ago, seen in ED for his other injuries but his shoulder pain was not addressed. Patient denies SOB, CP, headache, dizziness, weakness, numbness. Time Seen by Provider: 10/25/17 00:59 Chief Complaint (Nursing): Substance Abuse History Per: Patient History/Exam Limitations: no limitations Onset/Duration Of Symptoms: Days Current Symptoms Are (Timing): Still Present Suicide/Self Injury Attempted (Context): None Modifying Factor(s): Alcohol Associated Symptoms: denies: Depression, Suicidal Thoughts, Suicidal Plan Involuntary Hold By: None Recent travel outside of the [place]: No Additional History Per: Patient Past Medical History Reviewed: Historical Data, Nursing Documentation, Vital Signs Vital Signs: Last Vital Signs Temp 97.2 F L 10/24/17 23:54 Pulse 80 10/24/17 23:54 Resp 14 10/24/17 23:54 BP 140/70 10/24/17 23:54 Pulse Ox 96 10/25/17 03:16 - Medical History PMH: Asthma, Depression, Diabetes, Gastritis, Gastrointestinal Ulcer, HTN, Pneumonia, Seizures Denies: Chronic Kidney Disease Surgical History: Endoscopy Denies: Appendectomy - [facility] Procedures ALCOHOL DETOXIFICATION (06/06/14) DETOXIFICATION SERVICES FOR SUBSTANCE ABUSE TREATMENT (03/30/16) ESOPHAGOGASTRODUODENOSCOPY [EGD] W/CLOSED BIOPSY (07/31/13) INDIV PSYCHOTHERAPY FOR SUBSTANCE ABUSE TREATMENT, SUPPORT (03/30/16) INFLUENZA VACCINATION (07/31/13) INJECT/INFUSE ELECTROLYT (07/07/14) INJECT/INFUSE NEC (07/07/14) INTRODUCTION OF SERUM/TOX/VACCINE INTO MUSCLE, PERC APPROACH (02/12/17) TETANUS TOXOID ADMINIST (08/06/14) VACCINATION NEC (07/31/13) Family History: States: Unknown Family Hx - Social History Hx Tobacco Use: No Hx Alcohol Use: Yes Hx Substance Use: Yes (crack) - Immunization History Hx Tetanus Toxoid Vaccination: No Hx Influenza Vaccination: Yes Hx Pneumococcal Vaccination: No Review Of Systems Constitutional: Negative for: Fever, Chills Cardiovascular: Negative for: Chest Pain Respiratory: Negative for: Shortness of Breath Gastrointestinal: Negative for: Abdominal Pain Musculoskeletal: Positive for: Shoulder Pain Skin: Negative for: Rash Neurological: Negative for: Headache, Dizziness Physical Exam - Physical Exam Appears: Non-toxic, No Acute Distress Skin: Normal Color, Warm, Dry Head: Atraumatic, Normacephalic Eye(s): bilateral: Normal Inspection Nose: No Discharge Oral Mucosa: Moist Neck: Normal ROM, Supple Extremity: Normal ROM, No Tenderness, Capillary Refill (< 2 seconds), No Deformity, No Swelling Neurological/Psych: Oriented x3, Normal Motor, Normal Sensation Gait: Steady ED Course And Treatment O2 Sat by Pulse Oximetry: 96 (On RA) Pulse Ox Interpretation: Normal - Other Rad Left Shoulder X-Ray X-Ray: Interpreted by Me, Viewed By Me Interpretation: No fracture or dislocation seen. Progress Note: Plan: - Left shoulder X-Ray. At this time the patient is ambulatory with steady gait, and is clinically sober. Observation discharge care of the patient included a discussion of outpatient management including available detox programs, instructions for continuing care and preparation of the discharge records. Patient is stable for discharge and outpatient therapy and follow-up. Disposition - Disposition Referrals: [facility] at [facility] [Outside] Disposition: HOME/ ROUTINE Disposition Time: 04:38 Condition: STABLE Additional Instructions: Tylenol or advil for pain Return to ER if worse Instructions: Alcohol Abuse and Alcoholism (DC) Forms: [facility] (Mohawk) - Clinical Impression Clinical Impression: Alcohol abuse, Shoulder pain, left - PA / [employer] F[employer]ORMAN / Resident Statement MD/DO has reviewed & agrees with the documentation as recorded. - Scribe Statement The provider has reviewed the documentation as recorded by the Scribe Bobo Joya All medical record entries made by the Scribe were at my direction and personally dictated by me. I have reviewed the chart and agree that the record accurately reflects my personal performance of the history, physical exam, medical decision making, and the department course for this patient. I have also personally directed, reviewed, and agree with the discharge instructions and disposition.
[2017-10-25 05:38] VITALS: TEMP 98.3
[2017-10-25 05:44] VITALS: BP 132/72; PULSE 84; RESP 16
[2017-10-25 07:22] VITALS: O2SAT 96
--- NOTE | 2017-10-25 08:42 | RAD ---
PROCEDURE: Radiographs of the Left Shoulder HISTORY: pain, COMPARISON: No prior. FINDINGS: BONES: Normal. No fracture. JOINTS: Mild glenohumeral osteoarthritis. Mild acromioclavicular degenerative arthritis. Calcific tendinitis. SOFT TISSUES: Normal. OTHER FINDINGS: None. IMPRESSION: No fracture. Glenohumeral and acromioclavicular arthritis and calcific tendinitis.
== END 2017-10-25 05:39 | disposition home or self-care (01) ==
LOC: C.ER 23:50
DX: M25.512 Pain in left shoulder (principal); F10.10 Alcohol abuse, uncomplicated

== ENCOUNTER 2017-11-06 02:58 | Emergency (ER) | payer MEDICAID ==
[2017-11-06 02:58] VITALS: BMI 24.3
[2017-11-06 03:17] VITALS: RESP 16
--- NOTE | 2017-11-06 05:03 | C.PDOC ---
History Of Present Illness Pt was BIBEMS due to public alcohol intoxication. Pt admits to drinking alcohol tonight. Time Seen by Provider: 11/06/17 03:18 Chief Complaint (Nursing): Substance Abuse History Per: Patient, EMS History/Exam Limitations: intoxication Onset/Duration Of Symptoms: Unknown Current Symptoms Are (Timing): Still Present Suicide/Self Injury Attempted (Context): None Modifying Factor(s): Alcohol Severity: Moderate Associated Symptoms: denies: Suicidal Thoughts, Suicidal Plan Additional History Per: Prior Records Past Medical History Reviewed: Historical Data, Nursing Documentation, Vital Signs Vital Signs: Last Vital Signs Temp 97.9 F 11/06/17 03:15 Pulse 95 H 11/06/17 03:15 Resp 16 11/06/17 03:15 BP 136/84 11/06/17 03:15 Pulse Ox 97 11/06/17 05:03 - Medical History PMH: Asthma, Depression, Diabetes, Gastritis, Gastrointestinal Ulcer, HTN, Pneumonia, Seizures Other PMH: Alcohol abuse Surgical History: Endoscopy - [facility] Procedures ALCOHOL DETOXIFICATION (06/06/14) DETOXIFICATION SERVICES FOR SUBSTANCE ABUSE TREATMENT (03/30/16) ESOPHAGOGASTRODUODENOSCOPY [EGD] W/CLOSED BIOPSY (07/31/13) INDIV PSYCHOTHERAPY FOR SUBSTANCE ABUSE TREATMENT, SUPPORT (03/30/16) INFLUENZA VACCINATION (07/31/13) INJECT/INFUSE ELECTROLYT (07/07/14) INJECT/INFUSE NEC (07/07/14) INTRODUCTION OF SERUM/TOX/VACCINE INTO MUSCLE, PERC APPROACH (02/12/17) TETANUS TOXOID ADMINIST (08/06/14) VACCINATION NEC (07/31/13) Family History: States: Unknown Family Hx - Social History Hx Tobacco Use: No Hx Alcohol Use: Yes Hx Substance Use: Yes (crack) - Immunization History Hx Tetanus Toxoid Vaccination: No Hx Influenza Vaccination: Yes Hx Pneumococcal Vaccination: No Review Of Systems Review Of Systems: ROS cannot be obtained secondary to pt's inabilty to answer questions. Physical Exam - Physical Exam Appears: Non-toxic, No Acute Distress Skin: Normal Color, Warm, Dry Head: Atraumatic Eye(s): bilateral: PERRL, EOMI Neck: Normal ROM, No Midline Cervical Tenderness, No Step Off Deformity, Supple Cardiovascular: Rhythm Regular Respiratory: Normal Breath Sounds, No Accessory Muscle Use Gastrointestinal/Abdominal: Soft Extremity: Normal ROM Neurological/Psych: Slow To Respond With Command, Other (Moving all extremities) Gait: Unable To Assess ED Course And Treatment O2 Sat by Pulse Oximetry: 97 Pulse Ox Interpretation: Normal Progress Note: Pt is now clinically sober. AAOx3. Reassessment Condition: Improved Disposition Counseled Patient/Family Regarding: Diagnosis, Need For Followup - Disposition Referrals: [facility] at [facility] [Outside] Disposition: HOME/ ROUTINE Disposition Time: 06:02 Condition: IMPROVED Additional Instructions: Avoid alcohol and other illicit drugs. Follow up with your doctor or in the clinic. Return to the ER if you develop worsening of symptoms or if you have any other concerns. Instructions: Alcohol Abuse and Alcoholism (DC) - Clinical Impression Clinical Impression: Alcohol abuse
[2017-11-06 06:32] VITALS: BP 129/78; PULSE 91; TEMP 98; O2SAT 96
== END 2017-11-06 06:33 | disposition home or self-care (01) ==
LOC: C.ER 02:58
DX: F10.10 Alcohol abuse, uncomplicated (principal); E11.9 Type 2 diabetes mellitus without complications

== ENCOUNTER 2017-12-14 17:11 | Emergency (ER) | payer MEDICAID ==
[2017-12-14 17:12] VITALS: BMI 25.2
--- NOTE | 2017-12-14 19:07 | C.PDOC ---
History Of Present Illness Patient presents to the ER via EMS after being found intoxicated in public. Denies suicidal ideation or homicidal ideation. Time Seen by Provider: 12/14/17 19:07 Chief Complaint (Nursing): Substance Abuse History Per: Patient History/Exam Limitations: no limitations Onset/Duration Of Symptoms: Hrs Current Symptoms Are (Timing): Still Present Suicide/Self Injury Attempted (Context): None Modifying Factor(s): Alcohol Severity: None Pain Scale Rating Of: 0 Associated Symptoms: denies: Depression, Suicidal Thoughts, Other (Homicidal ideation) Involuntary Hold By: None Recent travel outside of the [place]: No Past Medical History Reviewed: Historical Data, Nursing Documentation, Vital Signs Vital Signs: Last Vital Signs Temp 98.1 F 12/14/17 19:58 Pulse 98 H 12/14/17 19:58 Resp 18 12/14/17 19:58 BP 103/69 12/14/17 19:58 Pulse Ox 100 12/14/17 19:58 - Medical History PMH: Asthma, Depression, Diabetes, Gastritis, Gastrointestinal Ulcer, HTN, Pneumonia, Seizures Surgical History: Endoscopy Denies: Appendectomy - [facility] Procedures ALCOHOL DETOXIFICATION (06/06/14) DETOXIFICATION SERVICES FOR SUBSTANCE ABUSE TREATMENT (03/30/16) ESOPHAGOGASTRODUODENOSCOPY [EGD] W/CLOSED BIOPSY (07/31/13) INDIV PSYCHOTHERAPY FOR SUBSTANCE ABUSE TREATMENT, SUPPORT (03/30/16) INFLUENZA VACCINATION (07/31/13) INJECT/INFUSE ELECTROLYT (07/07/14) INJECT/INFUSE NEC (07/07/14) INTRODUCTION OF SERUM/TOX/VACCINE INTO MUSCLE, PERC APPROACH (02/12/17) TETANUS TOXOID ADMINIST (08/06/14) VACCINATION NEC (07/31/13) Family History: States: No Known Family Hx - Social History Hx Tobacco Use: No Hx Alcohol Use: Yes Hx Substance Use: Yes (crack) - Immunization History Hx Tetanus Toxoid Vaccination: No Hx Influenza Vaccination: Yes Hx Pneumococcal Vaccination: No Review Of Systems Constitutional: Negative for: Fever, Chills Cardiovascular: Negative for: Chest Pain, Palpitations Respiratory: Negative for: Shortness of Breath Gastrointestinal: Negative for: Nausea, Vomiting Psych: Negative for: Suicidal ideation, Other (Homicidal ideation) Physical Exam - Physical Exam Appears: Non-toxic, Other (ETOH on breath, no sign of injury) Skin: Warm, Dry Head: Normacephalic Oral Mucosa: Moist Chest: Symmetrical, No Tenderness Cardiovascular: Rhythm Regular Respiratory: No Rales, No Rhonchi, No Wheezing Gastrointestinal/Abdominal: Soft, No Tenderness Neurological/Psych: Oriented x3 ED Course And Treatment O2 Sat by Pulse Oximetry: 97 Pulse Ox Interpretation: Normal Reevaluation Time: 21:00 Reassessment Condition: Improved Disposition Counseled Patient/Family Regarding: Studies Performed, Diagnosis, Need For Followup - Disposition Referrals: [facility] [Outside] Disposition: HOME/ ROUTINE Disposition Time: 19:07 Condition: FAIR Forms: [employer] (Chilean) - Clinical Impression Clinical Impression: ETOH abuse - Scribe Statement The provider has reviewed the documentation as recorded by the Scribgian Almonte All medical record entries made by the Scribe were at my direction and personally dictated by me. I have reviewed the chart and agree that the record accurately reflects my personal performance of the history, physical exam, medical decision making, and the department course for this patient. I have also personally directed, reviewed, and agree with the discharge instructions and disposition.
[2017-12-14 19:58] VITALS: RESP 18
[2017-12-14 21:03] VITALS: BP 111/71; PULSE 95; TEMP 98
[2017-12-14 21:13] VITALS: O2SAT 97
== END 2017-12-14 21:03 | disposition home or self-care (01) ==
LOC: C.ER 17:11
DX: F10.10 Alcohol abuse, uncomplicated (principal); E11.9 Type 2 diabetes mellitus without complications; I10 Essential (primary) hypertension

== ENCOUNTER 2018-01-03 18:05 | Emergency (ER) | payer MEDICAID ==
[2018-01-03 18:25] VITALS: BMI 25.8
--- NOTE | 2018-01-03 19:14 | C.PDOC ---
History Of Present Illness Patient presents to the ER stating he has been drinking today. Denies any falls or injuries. Time Seen by Provider: 01/03/18 19:14 Chief Complaint (Nursing): Lower Extremity Problem/Injury History Per: Patient History/Exam Limitations: no limitations Onset/Duration Of Symptoms: Hrs Current Symptoms Are (Timing): Still Present Severity: None Pain Scale Rating Of: 0 Recent travel outside of the [place]: No Past Medical History Reviewed: Historical Data, Nursing Documentation, Vital Signs Vital Signs: Last Vital Signs Temp 98.4 F 01/03/18 22:30 Pulse 92 H 01/03/18 22:30 Resp 18 01/03/18 22:30 BP 103/62 01/03/18 22:30 Pulse Ox 97 01/03/18 22:30 - Medical History PMH: Asthma, Depression, Diabetes, Gastritis, Gastrointestinal Ulcer, HTN, Pneumonia, Seizures Surgical History: Endoscopy - [facility] Procedures ALCOHOL DETOXIFICATION (06/06/14) DETOXIFICATION SERVICES FOR SUBSTANCE ABUSE TREATMENT (03/30/16) ESOPHAGOGASTRODUODENOSCOPY [EGD] W/CLOSED BIOPSY (07/31/13) INDIV PSYCHOTHERAPY FOR SUBSTANCE ABUSE TREATMENT, SUPPORT (03/30/16) INFLUENZA VACCINATION (07/31/13) INJECT/INFUSE ELECTROLYT (07/07/14) INJECT/INFUSE NEC (07/07/14) INTRODUCTION OF SERUM/TOX/VACCINE INTO MUSCLE, PERC APPROACH (02/12/17) TETANUS TOXOID ADMINIST (08/06/14) VACCINATION NEC (07/31/13) Family History: States: No Known Family Hx - Social History Hx Tobacco Use: No Hx Alcohol Use: Yes Hx Substance Use: Yes (crack) - Immunization History Hx Tetanus Toxoid Vaccination: No Hx Influenza Vaccination: Yes Hx Pneumococcal Vaccination: No Review Of Systems Constitutional: Negative for: Fever, Chills Cardiovascular: Negative for: Chest Pain, Palpitations Respiratory: Negative for: Cough, Shortness of Breath Gastrointestinal: Negative for: Nausea, Vomiting Physical Exam - Physical Exam Appears: Non-toxic, Other (ETOH on breath, no sign of injury) Skin: Warm, Dry Head: Normacephalic Oral Mucosa: Moist Chest: Symmetrical, No Tenderness Cardiovascular: Rhythm Regular Respiratory: No Rales, No Rhonchi, No Wheezing Gastrointestinal/Abdominal: Soft, No Tenderness Extremity: Other (Moves all extremities) Neurological/Psych: Oriented x3 ED Course And Treatment O2 Sat by Pulse Oximetry: 96 (room air) Pulse Ox Interpretation: Normal Reevaluation Time: 23:04 Reassessment Condition: Improved Disposition Counseled Patient/Family Regarding: Studies Performed, Diagnosis, Need For Followup - Disposition Disposition: HOME/ ROUTINE Disposition Time: 19:14 Condition: FAIR Instructions: Alcohol Abuse and Alcoholism (DC) Forms: [employer] (Urdu) - Clinical Impression Clinical Impression: ETOH abuse - Scribe Statement The provider has reviewed the documentation as recorded by the Scribgian Almonte All medical record entries made by the Violetaibe were at my direction and personally dictated by me. I have reviewed the chart and agree that the record accurately reflects my personal performance of the history, physical exam, medical decision making, and the department course for this patient. I have also personally directed, reviewed, and agree with the discharge instructions and disposition.
[2018-01-03 22:30] VITALS: BP 103/62; PULSE 92; RESP 18; TEMP 98.4
[2018-01-03 23:05] VITALS: O2SAT 96
== END 2018-01-03 23:10 | disposition home or self-care (01) ==
LOC: C.ER 18:05
DX: F10.10 Alcohol abuse, uncomplicated (principal); E11.9 Type 2 diabetes mellitus without complications

== ENCOUNTER 2018-01-13 02:21 | Emergency (ER) | payer MEDICAID ==
[2018-01-13 02:22] VITALS: BMI 25.8
[2018-01-13 02:32] VITALS: O2SAT 98
--- NOTE | 2018-01-13 06:21 | C.PDOC ---
History Of Present Illness 52 year old male presents to the ER stating he was helping his brother up the stairs , slipped and fell. Pt now c/o pain to the left hip pain (?chronic), right chest wall pain, and left side of his head. PT notes "my head isnt bothering me much." Admits to ETOH tonight. Denies LOC, sob, abdominal pain, weakness, numbess, nausea, or vomiting. Time Seen by Provider: 01/13/18 02:41 Chief Complaint (Nursing): Lower Extremity Problem/Injury History Per: Patient History/Exam Limitations: no limitations Onset/Duration Of Symptoms: Hrs Current Symptoms Are (Timing): Still Present Recent travel outside of the [place]: No - Hip Description Of Injury: Fell Past Medical History Reviewed: Historical Data, Nursing Documentation, Vital Signs Vital Signs: Last Vital Signs Temp 97.8 F 01/13/18 06:46 Pulse 70 01/13/18 06:46 Resp 14 01/13/18 06:46 BP 100/70 01/13/18 06:46 Pulse Ox 98 01/13/18 06:46 - Medical History PMH: Asthma, Depression, Diabetes, Gastritis, Gastrointestinal Ulcer, HTN, Pneumonia, Seizures Surgical History: Endoscopy - [facility] Procedures ALCOHOL DETOXIFICATION (06/06/14) DETOXIFICATION SERVICES FOR SUBSTANCE ABUSE TREATMENT (03/30/16) ESOPHAGOGASTRODUODENOSCOPY [EGD] W/CLOSED BIOPSY (07/31/13) INDIV PSYCHOTHERAPY FOR SUBSTANCE ABUSE TREATMENT, SUPPORT (03/30/16) INFLUENZA VACCINATION (07/31/13) INJECT/INFUSE ELECTROLYT (07/07/14) INJECT/INFUSE NEC (07/07/14) INTRODUCTION OF SERUM/TOX/VACCINE INTO MUSCLE, PERC APPROACH (02/12/17) TETANUS TOXOID ADMINIST (08/06/14) VACCINATION NEC (07/31/13) Family History: States: Unknown Family Hx - Social History Hx Tobacco Use: No Hx Alcohol Use: Yes Hx Substance Use: Yes (crack) - Immunization History Hx Tetanus Toxoid Vaccination: No Hx Influenza Vaccination: Yes Hx Pneumococcal Vaccination: No Review Of Systems Respiratory: Negative for: Shortness of Breath Gastrointestinal: Negative for: Nausea, Vomiting Musculoskeletal: Positive for: Leg Pain, Other (Hip pain, chest wall pain, left parietal head pain) Neurological: Negative for: Weakness, Numbness, Other (LOC) Physical Exam - Physical Exam Appears: Non-toxic, No Acute Distress (pt is sleeping) Skin: Normal Color, Warm, Dry Head: Tenderness ((+) tenderness and swelling to the left parietal scalp), Swelling Eye(s): bilateral: Normal Inspection, PERRL, EOMI Ear(s): Bilateral: Normal Nose: Normal Oral Mucosa: Moist Throat: Normal, No Erythema, No Exudate Neck: Normal, Normal ROM, No Midline Cervical Tenderness, No Paracervical Tenderness, Supple Chest: Symmetrical, Tenderness ((+) pain digital reproducible at the lateral right anterior chest wall) Cardiovascular: Rhythm Regular Respiratory: Normal Breath Sounds, No Rales, No Rhonchi, No Wheezing Gastrointestinal/Abdominal: Soft, No Tenderness Back: No Vertebral Tenderness, No Paraspinal Tenderness Extremity: No Normal ROM (decreased secondary to pain), Tenderness ((+) TTP to the left lateral hip and upper extremitis. ), No Calf Tenderness, Capillary Refill (< 2 sec), No Deformity, No Swelling Extremity: Bilateral: Normal Color And Temperature Pulses: Left Dorsalis Pedis: Normal, Right Dorsalis Pedis: Normal Neurological/Psych: Oriented x3, Normal Speech, Normal Motor, Normal Sensation Gait: Steady ED Course And Treatment O2 Sat by Pulse Oximetry: 98 (Room air) Pulse Ox Interpretation: Normal - Other Rad Right chest and ribs x-ray X-Ray: Interpreted by Me, Viewed By Me Interpretation: No acute fracture or dislocation. Left femur x-ray X-Ray: Interpreted by Me, Viewed By Me Interpretation: No acute fracture or dislocation. Left hip x-ray X-Ray: Interpreted by Me, Viewed By Me Interpretation: Arthritis. No acute fracture or dislocation. - CT Scan/US CT Head Other Rad Studies (CT/US): Read By Radiologist, Radiology Report Reviewed CT/US Interpretation: EXAM: CT Head Without Intravenous Contrast. EXAM DATE/ TIME: 01/13/2018 5:26 AM. CLINICAL HISTORY: 52 years old, male; Pain; Headache ; Patient HX: 18; Additional info: Trauma. TECHNIQUE: Axial computed tomography images of the head/brain without intravenous contrast. All CT scans at this facility use at least one of these dose optimization techniques: automated. exposure control; mA and/or kV adjustment per patient size ( includes targeted exams where dose is. matched to clinical indication); or iterative reconstruction. COMPARISON: CT - HEAD W/O CONTRAST 2015-08-11 01: 26. FINDINGS: Brain: Normal. No hemorrhage. No significant white matter disease. No edema. Ventricles: Normal. No ventriculomegaly. Bones/joints: Normal. No acute fracture. Sinuses: Partial opacification of the left maxillary sinus. Mastoid air cells: Normal as visualized. No mastoid effusion. Soft tissues: Frontal, left parietal and posterior subcutaneous tissue swelling. IMPRESSION: No definite acute intracranial abnormality. Progress Note: Right rib/chest x-ray, left femur x-ray, left hip x-ray, and CT head ordered, results were negative. Patient is resting comfortably in the ER in no distress, able to ambulate without difficulty, neuro is intact, advised to follow up with PMD and return precautions given. Disposition - Disposition Referrals: Piyush Simon MD [Staff Provider] - Disposition: HOME/ ROUTINE Disposition Time: 06:30 Condition: STABLE Additional Instructions: Follow up with the bone doctor in 1-2 days. Return to ER if symptoms persist or worsen. Instructions: Osteoarthritis (DC) Forms: [employer] (Upper Sorbian) - Clinical Impression Clinical Impression: Contusion, Hip arthritis - PA / LUMBER RACKER / Resident Statement MD/DO has reviewed & agrees with the documentation as recorded. - Scribe Statement The provider has reviewed the documentation as recorded by the Scribgian Almonte All medical record entries made by the Scribe were at my direction and personally dictated by me. I have reviewed the chart and agree that the record accurately reflects my personal performance of the history, physical exam, medical decision making, and the department course for this patient. I have also personally directed, reviewed, and agree with the discharge instructions and disposition.
[2018-01-13 06:47] VITALS: BP 100/70; PULSE 70; RESP 14; TEMP 97.8
--- NOTE | 2018-01-13 08:10 | RAD ---
PROCEDURE: HISTORY: trauma COMPARISON: 10/03/2017 TECHNIQUE: AP view of the pelvis and applicable frog leg views obtained. FINDINGS: The intramedullary esme and screw transfixing a right intertrochanteric fracture appears similar. The prominent heterotopic bone fragment bordering the superior hardware is similar. The advanced left hip joint cystic arthrosis is unchanged. Ir no interval fracture appreciated. Left lateral proximal shaft smooth exostosis partially visualize-similar. Inferior lumbar facet hypertrophic changes spur-similar IMPRESSION: No interval fracture or dislocation Other findings -as above.
--- NOTE | 2018-01-13 08:28 | CT ---
PROCEDURE: CT HEAD WITHOUT CONTRAST. HISTORY: trauma COMPARISON: CT head dated 08/11/2015 TECHNIQUE: Axial computed tomography images were obtained through the head/brain without intravenous contrast. Radiation dose: Total exam DLP = 945 mGy-cm. This CT exam was performed using one or more of the following dose reduction techniques: Automated exposure control, adjustment of the mA and/or kV according to patient size, and/or use of iterative reconstruction technique. FINDINGS: HEMORRHAGE: No intracranial hemorrhage. BRAIN: No mass effect or edema. Scattered focal lucencies in the subcortical and periventricular white matter suggestive for chronic microvascular ischemic change. VENTRICLES: Unremarkable. No hydrocephalus. CALVARIUM: Unremarkable. PARANASAL SINUSES: Partial opacification of the left maxillary sinus. MASTOID AIR CELLS: Unremarkable as visualized. No inflammatory changes. OTHER FINDINGS: Frontal, left parietal, and posterior subcutaneous soft tissue swelling. IMPRESSION: No definite acute intracranial abnormality. Additional findings as above. If symptoms persists, consider MRI. These findings were preliminarily reported at 6:35 a.m. on 01/13/[address] Gutierrez Gomez from [facility].
--- NOTE | 2018-01-13 08:31 | RAD ---
PROCEDURE: HISTORY: trauma COMPARISON: Correlation is made with the same-day left hip x-rays which better include the most proximal left femur than these images Correlation is also made with the left knee x-ray from 10/03/2017 TECHNIQUE: Three views FINDINGS: No left femoral fracture appreciated. Left hip and left knee arthrosis present Multiple well corticated ossifications border the anterior tibial plateau and anterior tibial tuberosity. A tibial intramedullary esme with screw transfixing a prior fracture here is noted. The well corticated ossifications are similar in appearance with the left knee x-ray from 10/03/2017. . These calcifications are compatible with extensive heterotopic bone - with or without prior old osseous tibial tuberosity avulsions. Impedment to left knee extension is inferred based on the position and size of the well corticated ossifications here. Pedunculated spurring off the anterior tibial tuberosity is also compatible with these ossifications. Tibial fibular osseous bridging ankylosis is suggested The prior small lateral femoral cortical hyperostoses noted on left hip x-ray (as well as prior left hip x-rays -is partially obscured I summation of soft tissues of the proximal thigh. IMPRESSION: No acute fracture or dislocation appreciated. Partially visualized hardware transfixing a remote tibial fracture. Multifocal arthrosis,, extensive heterotopic bone with or without pedunculated osteophytes -bordering the anterior tibial plateau and tuberosity here -as referenced above .
--- NOTE | 2018-01-13 08:42 | RAD ---
PROCEDURE: Radiographs of the Chest and Right Ribs. HISTORY: trauma COMPARISON: 10/05/2017 TECHNIQUE: Frontal radiograph of the chest and multiple oblique radiographs of the right ribs were obtained. FINDINGS: RIGHT RIBS: The right anterolateral 10th rib non nondisplaced acute/subacute fracture is present. LUNGS: Clear. The prior left retrocardiac opacity is not visualized on this exam compatible with its resolution PLEURA: No pneumothorax or pleural fluid. CARDIOVASCULAR: Normal sized heart. No pulmonary vascular congestion. OTHER FINDINGS: Bilateral shoulder arthrosis IMPRESSION: Nondisplaced right anterolateral fracture-acute/subacute appearing. . No pneumothorax seen. Prior chest x-ray 10/05/2017 referenced left retrocardiac density -resolved Comments: Rib fracture findings called in to ER and given to Yaneli dey" on 01/13/2018 at 8:40 a.m.
== END 2018-01-13 06:47 | disposition home or self-care (01) ==
LOC: C.ER 02:21
DX: S70.02XA Contusion of left hip, initial encounter (principal); W10.9XXA Fall (on) (from) unspecified stairs and steps, initial encounter; Y92.89 Other specified places as the place of occurrence of the external cause; M13.852 Other specified arthritis, left hip

== ENCOUNTER 2018-02-01 01:52 | Emergency (ER) | payer MEDICAID ==
[2018-02-01 01:52] VITALS: BMI 25.8
[2018-02-01 02:16] VITALS: RESP 20; TEMP 98.3
--- NOTE | 2018-02-01 03:06 | C.PDOC ---
History Of Present Illness 52-year-old male brought in by ambulance for complaints of left leg pain status- post fall this morning. States he tripped and fell onto the left side, now complaining of pain over the left hip. There was no LOC. When asked where the pain is, patient also points to the right hip. Otherwise no weakness, numbness, or tingling. Time Seen by Provider: 02/01/18 02:23 Chief Complaint (Nursing): Hip Pain History Per: Patient History/Exam Limitations: no limitations Onset/Duration Of Symptoms: Hrs Current Symptoms Are (Timing): Still Present Severity: Mild Pain Scale Rating Of: 4 - Hip Description Of Injury: Fell, Tripped Past Medical History Reviewed: Historical Data, Nursing Documentation, Vital Signs Vital Signs: Last Vital Signs Temp 98.3 F 02/01/18 05:08 Pulse 84 02/01/18 05:08 Resp 20 02/01/18 05:08 BP 147/89 02/01/18 05:08 Pulse Ox 97 02/01/18 05:32 - Medical History PMH: Asthma, Depression, Diabetes, Gastritis, Gastrointestinal Ulcer, HTN, Pneumonia, Seizures Denies: Chronic Kidney Disease Surgical History: Endoscopy Denies: Appendectomy - [facility] Procedures ALCOHOL DETOXIFICATION (06/06/14) DETOXIFICATION SERVICES FOR SUBSTANCE ABUSE TREATMENT (03/30/16) ESOPHAGOGASTRODUODENOSCOPY [EGD] W/CLOSED BIOPSY (07/31/13) INDIV PSYCHOTHERAPY FOR SUBSTANCE ABUSE TREATMENT, SUPPORT (03/30/16) INFLUENZA VACCINATION (07/31/13) INJECT/INFUSE ELECTROLYT (07/07/14) INJECT/INFUSE NEC (07/07/14) INTRODUCTION OF SERUM/TOX/VACCINE INTO MUSCLE, PERC APPROACH (02/12/17) TETANUS TOXOID ADMINIST (08/06/14) VACCINATION NEC (07/31/13) Family History: States: Unknown Family Hx - Social History Hx Tobacco Use: No Hx Alcohol Use: Yes Hx Substance Use: Yes (crack) - Immunization History Hx Tetanus Toxoid Vaccination: No Hx Influenza Vaccination: Yes Hx Pneumococcal Vaccination: No Review Of Systems Except As Marked, All Systems Reviewed And Found Negative. Musculoskeletal: Positive for: Leg Pain (bilateral hip pain) Skin: Negative for: Lesions, Bruising Neurological: Negative for: Weakness, Numbness Physical Exam - Physical Exam Appears: Well, Non-toxic, No Acute Distress Skin: Warm, Dry, No Rash Head: Atraumatic, Normacephalic Eye(s): bilateral: Normal Inspection Oral Mucosa: Moist Neck: Normal ROM Chest: Symmetrical Extremity: Tenderness (to the left lateral hip, and mild tenderness to left knee ; tenderness to right lateral hip), Capillary Refill (< 2 sec), No Deformity, No Swelling, Other (ROM limited secondary to pain) Pulses: Left Dorsalis Pedis: Normal, Right Dorsalis Pedis: Normal Neurological/Psych: Oriented x3, Normal Speech ED Course And Treatment O2 Sat by Pulse Oximetry: 97 (RA) Pulse Ox Interpretation: Normal Medical Decision Making Medical Decision Making: Impression: Hip pain s/p fall Plan: --650 mg Tylenol PO --X-Ray Hip w/ Pelvis Patient homeless and well known to ED, multiple ER visits and bed seeking. Patient was sleeping comfortably and permitted to rest in safe warm ED. Patient stable for discharge in the morning Disposition Counseled Patient/Family Regarding: Diagnosis, Need For Followup - Disposition Referrals: Minna العلي MD [Staff Provider] - Disposition: HOME/ ROUTINE Disposition Time: 05:40 Condition: STABLE Additional Instructions: Take Tylenol or Motrin for any pain Follow up with your primary medical doctor or clinic in 2-5 days for further evaluation Instructions: Hip Pain (DC) - POA Present On Arrival: Falls Or Trauma - Clinical Impression Clinical Impression: Hip pain, Contusion of hip - PA / INSURANCE SALES ASSISTANT / Resident Statement MD/DO has reviewed & agrees with the documentation as recorded. - Scribe Statement The provider has reviewed the documentation as recorded by the Scribe (Verónica Roe) All medical record entries made by the Scribe were at my direction and personally dictated by me. I have reviewed the chart and agree that the record accurately reflects my personal performance of the history, physical exam, medical decision making, and the department course for this patient. I have also personally directed, reviewed, and agree with the discharge instructions and disposition.
[2018-02-01 05:09] VITALS: BP 147/89; PULSE 84
[2018-02-01 05:30] VITALS: O2SAT 97
--- NOTE | 2018-02-01 08:10 | RAD ---
Date of service: 02/01/2018 PROCEDURE: HISTORY: pain s.p fall COMPARISON: 01/13/2018 femur and left hip. CT pelvis 10/03/2017 TECHNIQUE: Bilateral MLO and bilateral CC views were obtained. Additional views were obtained -as needed. CAD was applied. FINDINGS: The visualized portion of the right intramedullary femoral esme diagonal intertrochanteric screw is fixing a prior fracture here is similar in appearance. A separate well corticated ossification along the superior intramedullary esme is similar in appearance with the CT image of it marked heterotopic bone formation is compatible with this. There is some relative lucency between it and the intramedullary esme. The sliver like ossification projecting over the inferior medial aspect of the right intertrochanteric diagonal screw is similar in appearance as well. The screw projects beyond the lesser trochanter bony cortex margin. No change in appearance is suggested. The background right hip arthrosis is cystic medial and inferior and even more advanced cystic hyper trophic arthrosis within the left hip is renoted and similar in appearance Inferior lumbar spine facet hypertrophic changes are renoted. The SI joints and pubic symphysis appear grossly unremarkable. Bilateral hemipelvic phleboliths. The tiny metallic densities projecting over the left sacral wing is unchanged. Clinical correlation here is recommended tiny ballistic foreign body is 1 consideration. This is present and unchanged with the October [address] image IMPRESSION: No pelvic or femoral head fracture appreciated. Bilateral hip cystic arthrosis left greater than right Postop changes right side, heterotopic bone. There is some relative lucency projecting over the proximal femoral esme and heterotopic bone this appears grossly similar to prior studies. If further evaluation is needed, consider follow-up CT of the right hip/pelvis can be compare with a 10/03/2017 for any none appreciated interval changes in this repeat x-ray for similar findings without obvious explanation for patient's pain following a fall
== END 2018-02-01 05:42 | disposition home or self-care (01) ==
LOC: C.ER 01:52
DX: S70.02XA Contusion of left hip, initial encounter (principal); S70.01XA Contusion of right hip, initial encounter; W01.0XXA Fall on same level from slipping, tripping and stumbling without subsequent striking against object, initial encounter; M25.552 Pain in left hip; M25.551 Pain in right hip; Z59.0 Homelessness

== ENCOUNTER 2018-03-25 01:56 | Emergency (ER) | payer MEDICAID ==
[2018-03-25 01:57] VITALS: BMI 25.8
[2018-03-25 02:17] VITALS: O2SAT 100
--- NOTE | 2018-03-25 02:35 | C.PDOC ---
History Of Present Illness 52 y/o male, VICK, presents to the ED complaining of left shoulder and left knee pain that began s/p trip and fall from earlier today. He denies experiencing any LOC or sustaining any other injury. He is well known to the ED setting for prior falls he experienced due to ETOH USE. Time Seen by Provider: 03/25/18 02:14 Chief Complaint (Nursing): Upper Extremity Problem/Injury History Per: Patient History/Exam Limitations: no limitations Onset/Duration Of Symptoms: Hrs Current Symptoms Are (Timing): Still Present Quality: "Pain" Recent travel outside of the [place]: No Past Medical History Reviewed: Historical Data, Nursing Documentation, Vital Signs Vital Signs: Last Vital Signs Temp 98.7 F 03/25/18 02:13 Pulse 97 H 03/25/18 02:13 Resp 20 03/25/18 02:13 BP 113/81 03/25/18 02:13 Pulse Ox 100 03/25/18 03:01 - Medical History PMH: Asthma, Depression, Diabetes, Gastritis, Gastrointestinal Ulcer, HTN, Pneumonia, Seizures Denies: Chronic Kidney Disease Surgical History: Endoscopy Denies: Appendectomy - [facility] Procedures ALCOHOL DETOXIFICATION (06/06/14) DETOXIFICATION SERVICES FOR SUBSTANCE ABUSE TREATMENT (03/30/16) ESOPHAGOGASTRODUODENOSCOPY [EGD] W/CLOSED BIOPSY (07/31/13) INDIV PSYCHOTHERAPY FOR SUBSTANCE ABUSE TREATMENT, SUPPORT (03/30/16) INFLUENZA VACCINATION (07/31/13) INJECT/INFUSE ELECTROLYT (07/07/14) INJECT/INFUSE NEC (07/07/14) INTRODUCTION OF SERUM/TOX/VACCINE INTO MUSCLE, PERC APPROACH (02/12/17) TETANUS TOXOID ADMINIST (08/06/14) VACCINATION NEC (07/31/13) Family History: States: Unknown Family Hx - Social History Hx Tobacco Use: No Hx Alcohol Use: Yes Hx Substance Use: Yes (crack) - Immunization History Hx Tetanus Toxoid Vaccination: No Hx Influenza Vaccination: Yes Hx Pneumococcal Vaccination: No Review Of Systems Except As Marked, All Systems Reviewed And Found Negative. Constitutional: Negative for: Fever Musculoskeletal: Positive for: Shoulder Pain (left shoulder pain), Other (left knee pain) Physical Exam - Physical Exam Appears: Other (Mild intoxication) Skin: Normal Color, Warm, Dry Head: Atraumatic, Normacephalic Eye(s): bilateral: PERRL, EOMI Ear(s): Bilateral: Normal Oral Mucosa: Moist Neck: Normal ROM Chest: Symmetrical Cardiovascular: Rhythm Regular, No Murmur Respiratory: No Rales, No Rhonchi, No Wheezing, Other (NARD) Gastrointestinal/Abdominal: Bowel Sounds, Soft, No Tenderness Extremity: Normal ROM, No Deformity, No Swelling Extremity: Bilateral: Atraumatic, Normal Color And Temperature, Normal ROM Pulses: Left Radial: Normal, Right Radial: Normal Neurological/Psych: Oriented x3, Other (no gross focal deficits) Gait: Steady ED Course And Treatment O2 Sat by Pulse Oximetry: 100 (RA) Pulse Ox Interpretation: Normal - Other Rad Knee and Shoulder X-Ray X-Ray: Interpreted by Me Interpretation: DJD. Unchanged from prior visit. Reevaluation Time: 03:01 Reassessment Condition: Unchanged (PT CLEAR SPEECH AND THOUGHT, STEADY GAIT. AO3 , NO S/S ACUTE INTOX.) Medical Decision Making Medical Decision Making: Impression: 50 y/o male with left shoulder and knee pain s/p trip and fall Plan: -Knee X-Ray -Shoulder X-Ray -Glucose labs Disposition Counseled Patient/Family Regarding: Studies Performed, Diagnosis, Need For Followup - Disposition Referrals: [facility] [Outside] [facility] [Outside] Disposition: HOME/ ROUTINE Disposition Time: 03:00 Condition: GOOD Instructions: Contusion (DC) Forms: [facility] (Guyanese) - Clinical Impression Clinical Impression: Multiple contusions - PA / [facility] / Resident Statement MD/DO has reviewed & agrees with the documentation as recorded. - Scribe Statement The provider has reviewed the documentation as recorded by the Scribe (Gem Ricardo) All medical record entries made by the Scribe were at my direction and personally dictated by me. I have reviewed the chart and agree that the record accurately reflects my personal performance of the history, physical exam, medical decision making, and the department course for this patient. I have also personally directed, reviewed, and agree with the discharge instructions and disposition.
[2018-03-25 05:08] VITALS: BP 105/73; PULSE 88; RESP 18; TEMP 97.6
--- NOTE | 2018-03-25 08:38 | RAD ---
Date of service: 03/25/2018 PROCEDURE: Radiographs of the Left Shoulder HISTORY: TRAUMA COMPARISON: No prior. FINDINGS: BONES: Bone alignment and mineralization are normal. There is no acute displaced fracture or bone destruction. JOINTS: There is severe degenerative osteoarthrosis in the acromioclavicular joint and mild degenerative osteoarthrosis in the glenohumeral joint. SOFT TISSUES: There are lobular calcifications superolateral to the greater tuberosity of the humerus. OTHER FINDINGS: None. IMPRESSION: No acute displaced fracture or dislocation.
--- NOTE | 2018-03-25 08:41 | RAD ---
Date of service: 03/25/2018 PROCEDURE: Left Knee Radiographs. HISTORY: Pain. COMPARISON: None. FINDINGS: BONES: Status post open reduction and internal fixation of mid diaphyseal fracture in the tibia. There are old fracture deformities in the mid diaphysis of the tibia and fibula. No acute displaced fracture or dislocation. JOINTS: There is mild tricompartmental degenerative osteoarthrosis with reduced joint spaces, marginal osteophytes and tibial spiking, worse in the media compartment. JOINT EFFUSION: None. OTHER FINDINGS: None. IMPRESSION: No acute displaced fracture or dislocation.
== END 2018-03-25 05:09 | disposition home or self-care (01) ==
LOC: C.ER 01:56
DX: S40.012A Contusion of left shoulder, initial encounter (principal); S80.02XA Contusion of left knee, initial encounter; W01.0XXA Fall on same level from slipping, tripping and stumbling without subsequent striking against object, initial encounter

== ENCOUNTER 2018-07-31 00:46 | Emergency (ER) | payer MEDICAID | END 2018-07-31 05:54 | disposition home or self-care (01) | LOC: C.ER 00:46 ==